=== PATIENT | male | born 1940 | race Caucasian/White ===

== ENCOUNTER → 2018-11-27 10:45 | Day surgery (SDC) | payer MEDICARE, OTHER ==
[~2018-11-27 10:45] MED LIST: Acetaminophen TAB* 325 MG PO PRN; Buffered Lidocaine 1% SYRIN* 1 ML/SYRINGE INTRADERM ONE; Bupivacaine 0.25% SDV PF* 10 ML VIAL INJ ONE; DiMENhydriNATE IV* 50 MG/ML VIAL IV PUSH PRN; Famotidine IV* 10 MG/ML 2 ML (20 mg) ONE; Lactated Ringers 1000 ML Bag* 1,000 ML IV SCH; Levalbuterol 0.63MG/3ML NEB* UNIT OF USE INH PRN; Midazolam* 1 MG/ML 2 ML VIAL (2 MG) ONE; Naloxone* 0.4 MG/ML 1 ML VIAL IV PRN; Ondansetron INJ* 2 MG/ML VIAL IV PRN; ceFAZolin 2 GM in NS PREMIX(*) 2 GM/100 ML BAG IVPB ONE; diPHENhydraMINE IV* 50 MG/ML 1 ml VIAL (BENADRYL) IV PRN; fentaNYL* 50 MCG/ML 2 ML VIAL (100 MCG VIAL) IV PRN; fentaNYL* 50 MCG/ML 2 ML VIAL (100 MCG VIAL) ONE; oxyCODONE/Acetamin 5/325 MG* TAB PO PRN
[2018-11-27] MEDS: Buffered Lidocaine 1% SYRIN* 1 ML/SYRINGE INTRADERM ONE ×2 (12:05→12:34)
[2018-11-27 17:21] VITALS: BP 159/76
--- NOTE | 2018-11-27 22:01 | OP ---
DATE OF OPERATION: 11/27/18 - [facility] DATE OF : 40 SURGEON: Anastacio Schwartz MD. BUSINESS RULES ANALYST: SUJATA Ramesh. An bookkeeping assistant was needed for the procedure to aid in positioning of the arm and retraction. ANESTHESIOLOGIST: Dr. Berumen. ANESTHESIA: General. PRE-OP DIAGNOSES: 1. Right carpal tunnel syndrome. 2. Right cubital tunnel syndrome. 3. Right middle trigger finger. 4. Right thumb very prominent dorsal bone spur near the metacarpal base. POST-OP DIAGNOSES: 1. Right carpal tunnel syndrome. 2. Right cubital tunnel syndrome. 3. Right middle trigger finger. 4. Right thumb very prominent dorsal bone spur near the metacarpal base. OPERATIVE PROCEDURE: 1. Right in situ cubital tunnel release. 2. Right carpal tunnel release. 3. Right middle trigger finger release. 4. Removal of bone spur, right thumb metacarpal base. ESTIMATED BLOOD LOSS: 5 mL. INDICATIONS: Eladio had the numbness and tingling and triggering. Additionally , he had a very large bone spur on the dorsum of the thumb metacarpal base. We had talked about treatment options. He wanted me to take care of everything at the same time. He understands the risks and benefits of surgery including the risks of persistent numbness and tingling and the risk of irritation and numbness about the elbow. He wants to proceed. COMPLICATIONS: None. FINDINGS: See above and below. DESCRIPTION OF PROCEDURE: Mr. Hendricks was seen in the preoperative holding area. The current site, side, and procedure were identified. We came back to the operating room. The arm was prepped and draped in the usual fashion. A time- out was performed. The arm was exsanguinated with the Esmarch and the tourniquet was inflated to 250 mmHg. I went ahead and made a 1 to 2 cm incision over the dorsum of the thumb metacarpal base. Dissection was carried down and full-thickness subperiosteal flaps were raised off of the bone spur. It was actually a bilobed bone spur, the more prominent part being a little bit more ulnar. Once I dissected off the soft tissue free from about the bone spur, I took the rongeur and I excised it in its entirety. Once I had a nice smooth bony base, I went ahead and placed bone wax in the area where I had excised the bone spur. The wound was irrigated out and the skin was closed with 4-0 nylon suture. I then made a 1-cm longitudinal incision with the middle finger A1 eloise. Dissection was carried down through the subcutaneous tissue. Full-thickness flaps were raised off the tendon sheath. Ragnell retractors were placed. The tendon sheath was released longitudinally releasing in entirety of the A1 eloise. The leading edge of the A2 eloise and then the fibrous bands traversing the tendons proximally. After that I took the finger to a full range of motion , there was no more triggering, everything was looking good, so we irrigated out the wound and the skin was closed with 4-0 nylon suture. I then made a 2 to 3 cm incision in the proximal palm. Dissection was carried down through the subcutaneous tissue and palmar fascia. The transverse carpal ligament was released just off the radial aspect of the hook of the hamate. The release was completed distally and then proximally, I released the subcutaneous tissue and the palmar fascia. The remainder of the transverse carpal ligament was released together with the distal antebrachial fascia to a level of several centimeters proximal to the wrist flexion crease. The wound was irrigated out. The skin was closed with 4-0 nylon suture. Lastly, I abducted and externally rotated the arm and then I made a curvilinear incision over the posteromedial elbow in line with ulnar nerve. Dissection was carried down. A very prominent medial antebrachial cutaneous nerve was dissected free and preserved throughout the case. I exposed the nerve just proximal to the Blair ligament and appendiceal retractor was placed. The release was taken up past the arcade of Lowry and then came distally and released the Blair ligament. I then released the superficial FCU fascia and then released the very prominent subfascial layer. Care was taken to protect the nerve throughout. Once I completed the nerve decompression in its entirety , flexion and extended the elbow, there was no subluxation, the nerve was very stable, so we irrigated out the wound. I obtained hemostasis with a Bovie. Subcutaneous tissue was reapproximated with 3-0 Vicryl and the skin was closed with 3-0 Monocryl and Steri-Strips. A 0.25% plain Marcaine was infiltrated all around the operative areas. The wounds were dressed with Xeroform, 4x4's, sterile Webril and an ABD at the elbow and then Julián bandage. Tourniquet was deflated and the hand pinked up immediately. He was taken to the recovery room in stable condition. [id number] #: [id number] MTDD
== END | disposition home or self-care (01) ==
LOC: OR 10:45
PROVIDERS: ATTEND Orthopaedic Surgery Hand Surgery
DX: M18.11 Unilateral primary osteoarthritis of first carpometacarpal joint, right hand (principal); G56.01 Carpal tunnel syndrome, right upper limb; G56.21 Lesion of ulnar nerve, right upper limb; M65.331 Trigger finger, right middle finger; M77.8 Other enthesopathies, not elsewhere classified; M25.741 Osteophyte, right hand; I10 Essential (primary) hypertension; I48.91 Unspecified atrial fibrillation; Z79.01 Long term (current) use of anticoagulants; J44.9 Chronic obstructive pulmonary disease, unspecified; E78.00 Pure hypercholesterolemia, unspecified; K21.9 Gastro-esophageal reflux disease without esophagitis; F41.8 Other specified anxiety disorders; F17.290 Nicotine dependence, other tobacco product, uncomplicated
CPT/HCPCS: J0690; J2250; J3010; J3490

== ENCOUNTER 2020-06-11 11:39 | Inpatient (IN) ==
[2020-06-11] MEDS ORDERED: hydrALAZINE 20 mg/ml 1 ML Vial IV IV SLOW PU ONE ×2 (13:10→13:57)
[2020-06-11] MEDS ORDERED: NS 0.9% 1000 ml BAG 1,000 ML IV ONE (13:10)
[2020-06-11 13:56] LABS: ABS Eosinophils 0.1 10^3/ul (0-0.6); ABS Lymphocytes 2.5 10^3/ul (1.0-4.8); ABS Monocytes 0.5 10^3/ul (0-0.8); Eosinophil % 1.1 %; Hematocrit 44 % (42-52); Hemoglobin 14.9 g/dL (14.0-18.0); Mean Corpuscular HGB Conc 34 g/dL (31-36); Mean Corpuscular Hemoglobin 31 pg (27-31); Mean Corpuscular Volume 91 fL (80-94); Mean Platelet Volume 8.7 fL (7.4-10.4); Nucleated Red Blood Cells % 0.1; Platelet Count 178 10^3/uL (150-450); Red Cell Distribution Width 14 % (10-15); White Blood Count 7.2 10^3/uL (3.5-10.8)
[2020-06-11 14:29] LABS: Albumin/Globulin Ratio 1.5 (1-3); BUN/Creatinine Ratio 23.2 (8-20); Calcium 9.2 mg/dL (8.6-10.3); EGFR African American 92.5 (>60); EGFR Non-African American 76.5 (>60); Globulin 2.6 g/dL (2-4); Potassium 4.1 mmol/L (3.5-5.0); Total Bilirubin 0.4 mg/dL (0.2-1.0); Total Protein 6.6 g/dL (6.4-8.9)
[2020-06-11 14:31] LABS: Troponin I 0.01 ng/mL (<0.03)
[2020-06-11 15:11] LABS: TSH Ultra Thyroid Stim Horm 8.53 mcIU/mL (0.34-5.60)
[2020-06-11] MEDS ORDERED: niCARdipine 0.1MG/ML IVPREMIX 20 MG/200 ML BAG IV SCH (16:00)
[2020-06-11] MEDS ORDERED: Morphine 4 MG/ML VIAL (1 ml) IV ONE (16:04)
[2020-06-11] MEDS ORDERED: Ondansetron 4 mg VIAL 2 MG/ML 2 ml VIAL IV ONE (16:05)
[2020-06-11] MEDS ORDERED: Iohexol 350 (CONTRAST) 500 ML MDV IV ONE (18:38)
[2020-06-11 19:04] LABS: Hematocrit 50 % (42-52); Hemoglobin 17.1 g/dL (14.0-18.0); Mean Corpuscular HGB Conc 34 g/dL (31-36); Mean Corpuscular Hemoglobin 31 pg (27-31); Mean Corpuscular Volume 91 fL (80-94); Mean Platelet Volume 8.1 fL (7.4-10.4); Platelet Count 197 10^3/uL (150-450); Red Blood Count 5.53 10^6 /uL (4.18-5.48); Red Cell Distribution Width 14 % (10-15); White Blood Count 11.1 10^3/uL (3.5-10.8)
[2020-06-11] MEDS: niCARdipine 0.1MG/ML IVPREMIX 20 MG/200 ML BAG IV SCH ×2 (19:15→21:45)
[2020-06-11 19:18] LABS: Calcium 9.7 mg/dL (8.6-10.3); EGFR African American 98.5 (>60); EGFR Non-African American 81.4 (>60); Magnesium 1.8 mg/dL (1.9-2.7); Potassium 3.7 mmol/L (3.5-5.0)
[2020-06-12] MEDS: niCARdipine 0.1MG/ML IVPREMIX 20 MG/200 ML BAG IV SCH ×2 (03:21→08:50)
[2020-06-12 04:33] LABS: Hematocrit 51 % (42-52); Hemoglobin 17.1 g/dL (14.0-18.0); Mean Corpuscular HGB Conc 34 g/dL (31-36); Mean Corpuscular Hemoglobin 31 pg (27-31); Mean Corpuscular Volume 91 fL (80-94); Mean Platelet Volume 7.8 fL (7.4-10.4); Platelet Count 197 10^3/uL (150-450); Red Blood Count 5.55 10^6 /uL (4.18-5.48); Red Cell Distribution Width 15 % (10-15); White Blood Count 9.8 10^3/uL (3.5-10.8)
[2020-06-12 04:49] LABS: BUN/Creatinine Ratio 17.9 (8-20); Calcium 9.1 mg/dL (8.6-10.3); EGFR African American 116.2 (>60); Potassium 3.6 mmol/L (3.5-5.0)
[2020-06-12] MEDS ORDERED: oxyCODONE/Acetamin 5/325 mg TAB PO PRN (05:31)
[2020-06-12] MEDS ORDERED: Albuterol 2.5mg/3 ml (0.083%) NEB.SOLN INH PRN (05:31)
[2020-06-12] MEDS ORDERED: Potassium Chlor 20 meq TAB.ER PO ONE (05:32)
[2020-06-12 06:16] LABS: Troponin I 0.01 ng/mL (<0.03)
[2020-06-12] MEDS: CMCS:Venlafaxine 25 mg TAB (NF) PO SCH ×3 (08:26→20:01)
[2020-06-12] MEDS: Aspirin EC 81 mg TAB.EC (enteric coated) PO SCH (08:27)
[2020-06-12] MEDS: Multivitamins/Minerals TAB PO SCH (08:27)
[2020-06-12] MEDS: Morphine ER 30 mg TAB ** extended release PO SCH ×2 (08:27→22:05)
[2020-06-12] MEDS ORDERED: Methylnaltrexone SQ (NF) 12 MG/0.6 ML VIAL SUBCUT ONE (09:00)
[2020-06-12] MEDS ORDERED: Perflutren Lipid Microsphere 3 ML VIAL ONE (09:25)
[2020-06-13] MEDS ORDERED: Polyethylene Glycol 3350 17 GM PACKET PO PRN (06:59)
[2020-06-13] MEDS: Morphine ER 30 mg TAB ** extended release PO SCH (08:04)
[2020-06-13] MEDS: Aspirin EC 81 mg TAB.EC (enteric coated) PO SCH (08:04)
[2020-06-13] MEDS: Multivitamins/Minerals TAB PO SCH (08:04)
[2020-06-13] MEDS: CMCS:Venlafaxine 25 mg TAB (NF) PO SCH ×2 (08:05→12:55)
[2020-06-13 11:53] VITALS: BP 139/70
== END 2020-06-13 15:15 | disposition home or self-care (01) | DRG 305 ==
LOC: ED 11:39 → ICU 17:35 → MEDTELE 06-12 14:13
PROVIDERS: ADMIT Internal Medicine; ATTEND Internal Medicine

== ENCOUNTER 2020-06-19 14:11 | Observation (INO) ==
[2020-06-19 15:10] LABS: ABS Basophils 0.1 10^3/ul (0-0.2); ABS Lymphocytes 3.1 10^3/ul (1.0-4.8); ABS Monocytes 1.4 10^3/ul (0-0.8); ABS Neutrophils 13.7 10^3/ul (1.5-7.7); Eosinophil % 0.2 %; Hematocrit 53 % (42-52); Hemoglobin 17.6 g/dL (14.0-18.0); Mean Corpuscular HGB Conc 34 g/dL (31-36); Mean Corpuscular Hemoglobin 31 pg (27-31); Mean Corpuscular Volume 92 fL (80-94); Mean Platelet Volume 8.2 fL (7.4-10.4); Platelet Count 322 10^3/uL (150-450); Red Cell Distribution Width 14 % (10-15); White Blood Count 18.3 10^3/uL (3.5-10.8)
[2020-06-19 15:35] LABS: Troponin I 0.04 ng/mL (<0.03)
[2020-06-19 15:51] LABS: TSH Ultra Thyroid Stim Horm 4.16 mcIU/mL (0.34-5.60)
[2020-06-19 15:53] LABS: Free T4 0.81 ng/dL (0.61-1.12)
[2020-06-19 16:04] LABS: Albumin 4.6 g/dL (3.2-5.2); Anion Gap 20 mmol/L (2-11); CO2 Carbon Dioxide 18 mmol/L (22-32); Calcium 10.2 mg/dL (8.6-10.3); Chloride 101 mmol/L (101-111); Potassium 3.8 mmol/L (3.5-5.0); Sodium 139 mmol/L (135-145)
[2020-06-19 16:10] LABS: ALT 22 U/L (7-52); AST 25 U/L (13-39); Albumin/Globulin Ratio 1.6 (1-3); Alkaline Phosphatase 100 U/L (34-104); BUN/Creatinine Ratio 16.7 (8-20); Blood Urea Nitrogen 29 mg/dL (6-24); Globulin 2.9 g/dL (2-4); Glucose 141 mg/dL (70-100); Total Protein 7.5 g/dL (6.4-8.9)
[2020-06-19] MEDS ORDERED: NS 0.9% 1000 ml BAG 1,000 ML IV ONE ×2 (16:28→18:42)
[2020-06-19] MEDS ORDERED: oxyCODONE/Acetamin 5/325 mg TAB PO PRN (17:33)
[2020-06-19] MEDS ORDERED: Albuterol HFA INHALER 8 gm MDI INH PRN (17:39)
[2020-06-19 17:52] LABS: C Reactive Protein 1.79 mg/L (<8.01)
[2020-06-19 18:20] LABS: Troponin I 0.03 ng/mL (<0.03)
[2020-06-19] MEDS: Morphine ER 30 mg TAB ** extended release PO SCH (19:09)
[2020-06-19 19:30] LABS: Urine Appearance Cloudy; Urine Bilirubin Negative (Negative); Urine Blood 3+ (Negative); Urine Color Yellow; Urine Glucose Negative (Negative); Urine Ketones Negative (Negative); Urine Nitrite Negative (Negative); Urine Protein 3+(>=500 mg/dL) (Negative); Urine Specific Gravity 1.019 (1.010-1.030); Urine Urobilinogen Negative (Negative)
[2020-06-19 20:24] LABS: Urine Bacteria Absent (Absent); Urine Red Blood Cell 3+(>10/hpf) (Absent); Urine White Blood Cell Trace(0-5/hpf) (Absent)
[2020-06-19] MEDS ORDERED: IPRATROPIUM RESP MDI INH SCH (21:00)
[2020-06-19] MEDS ORDERED: ALBUTEROL INH SCH (21:00)
[2020-06-19] MEDS ORDERED: MELATONIN PYRIDOXINE HCL PO SCH (21:00)
[2020-06-19 21:43] LABS: Troponin I 0.03 ng/mL (<0.03)
[2020-06-19] MEDS: cefTRIAXone 1 gm/50 mL NS BAG 1 GM/50 ML BAG IVPB SCH (23:08)
[2020-06-20] MEDS: VENLAFAXINE 25 MG PO SCH ×4 (01:01→21:20)
[2020-06-20 02:28] LABS: ABS Basophils 0.1 10^3/ul (0-0.2); ABS Lymphocytes 4.1 10^3/ul (1.0-4.8); ABS Monocytes 1.2 10^3/ul (0-0.8); ABS Neutrophils 8.4 10^3/ul (1.5-7.7); Eosinophil % 0.1 %; Hematocrit 46 % (42-52); Hemoglobin 15.2 g/dL (14.0-18.0); Lymphocyte % 29.5 %; Mean Corpuscular HGB Conc 33 g/dL (31-36); Mean Corpuscular Hemoglobin 31 pg (27-31); Mean Corpuscular Volume 92 fL (80-94); Mean Platelet Volume 8.2 fL (7.4-10.4); Nucleated Red Blood Cells % 0.1; Platelet Count 253 10^3/uL (150-450); Red Blood Count 4.99 10^6 /uL (4.18-5.48); Red Cell Distribution Width 14 % (10-15); White Blood Count 13.8 10^3/uL (3.5-10.8)
[2020-06-20 02:42] LABS: BUN/Creatinine Ratio 23.2 (8-20); EGFR African American 60.1 (>60); EGFR Non-African American 49.7 (>60); Potassium 3.5 mmol/L (3.5-5.0)
[2020-06-20 02:51] LABS: Troponin I 0.03 ng/mL (<0.03)
[2020-06-20] MEDS ORDERED: Albuterol HFA INHALER 8 gm MDI INH PRN (07:00)
[2020-06-20] MEDS: Albuterol/Ipratropium RESP(NF) MDI (Combivent Respimat) INH SCH ×3 (07:01→13:39)
[2020-06-20] MEDS: Morphine ER 30 mg TAB ** extended release PO SCH ×2 (07:19→18:00)
[2020-06-20] MEDS: Aspirin EC 81 mg TAB.EC (enteric coated) PO SCH (09:53)
[2020-06-20] MEDS: Multivitamins/Minerals TAB PO SCH (09:53)
[2020-06-20] MEDS ORDERED: Senna TAB 8.6 mg TAB PO PRN (13:15)
[2020-06-20] MEDS ORDERED: Albuterol/Ipratropium NEB.SOL (2.5/0.5 MG) 3 ML NEB.SOLN INH PRN (14:45)
[2020-06-20] MEDS: Magnesium Hydroxide LIQ 30 ML UDC PO SCH ×2 (17:58→21:19)
[2020-06-20 19:36] LABS: Influenza A Molecular Negative (Negative); Influenza B Molecular Negative (Negative)
[2020-06-20] MEDS ORDERED: Magnesium Hydroxide LIQ 30 ML UDC PO SCH (21:00)
[2020-06-20] MEDS: cefTRIAXone 1 gm/50 mL NS BAG 1 GM/50 ML BAG IVPB SCH (21:18)
[2020-06-21 05:12] LABS: Hematocrit 45 % (42-52); Mean Corpuscular HGB Conc 34 g/dL (31-36); Mean Corpuscular Hemoglobin 31 pg (27-31); Mean Corpuscular Volume 91 fL (80-94); Platelet Count 202 10^3/uL (150-450); Red Blood Count 4.89 10^6 /uL (4.18-5.48); Red Cell Distribution Width 15 % (10-15); White Blood Count 7.7 10^3/uL (3.5-10.8)
[2020-06-21 05:18] LABS: Anion Gap 6 mmol/L (2-11); BUN/Creatinine Ratio 26.7 (8-20); Blood Urea Nitrogen 28 mg/dL (6-24); CO2 Carbon Dioxide 27 mmol/L (22-32); Chloride 103 mmol/L (101-111); EGFR African American 82.4 (>60); EGFR Non-African American 68.1 (>60); Glucose 112 mg/dL (70-100); Potassium 3.8 mmol/L (3.5-5.0); Sodium 136 mmol/L (135-145)
[2020-06-21 06:23] LABS: Vitamin B12 711 pg/mL (180-914)
[2020-06-21] MEDS: Morphine ER 30 mg TAB ** extended release PO SCH (06:36)
[2020-06-21] MEDS: VENLAFAXINE 25 MG PO SCH (09:17)
[2020-06-21] MEDS: Multivitamins/Minerals TAB PO SCH (09:18)
[2020-06-21] MEDS: Aspirin EC 81 mg TAB.EC (enteric coated) PO SCH (09:18)
[2020-06-21] MEDS: Magnesium Hydroxide LIQ 30 ML UDC PO SCH (09:20)
[2020-06-21 10:33] LABS: C Reactive Protein < 1.00 mg/L (<8.01)
[2020-06-21 13:05] VITALS: BP 151/72
== END 2020-06-21 13:45 | disposition home or self-care (01) ==
LOC: MED 14:11 → ED 14:11 → MED 20:30
PROVIDERS: ADMIT Internal Medicine; ATTEND Internal Medicine

== ENCOUNTER 2020-08-03 16:29 | Inpatient (IN) ==
[2020-08-03] MEDS ORDERED: NS 0.9% 1000 ml BAG 1,000 ML IV ONE ×2 (16:42→16:56)
[2020-08-03] MEDS ORDERED: Magnesium Sulfate IV 1GM/100ML 1 GM/100 ML BAG IV ONE (16:42)
[2020-08-03] MEDS ORDERED: Diltiazem IV push/loading dose 5 MG/ML 5 ML vial (25 mg) IV SLOW PU ONE (16:43)
[2020-08-03 16:51] LABS: ABS Basophils 0.1 10^3/ul (0-0.2); ABS Monocytes 1.4 10^3/ul (0-0.8); ABS Neutrophils 16.5 10^3/ul (1.5-7.7); Eosinophil % 0.1 %; Hematocrit 59 % (42-52); Hemoglobin 19.5 g/dL (14.0-18.0); Lymphocyte % 14.3 %; Mean Corpuscular HGB Conc 33 g/dL (31-36); Mean Corpuscular Hemoglobin 31 pg (27-31); Mean Corpuscular Volume 92 fL (80-94); Mean Platelet Volume 8.9 fL (7.4-10.4); Platelet Count 349 10^3/uL (150-450); Red Blood Count 6.38 10^6 /uL (4.18-5.48); Red Cell Distribution Width 14 % (10-15); White Blood Count 21.1 10^3/uL (3.5-10.8)
[2020-08-03] MEDS ORDERED: Piperacillin/Tazobac ADVAN 3.375 GM in NS 0.9% 100 ml BAG 100 ML IVPB ONE (16:54)
[2020-08-03] MEDS ORDERED: Vancomycin 1,250 MG in NS 0.9% 250 ml 250 ML IVPB SCH (17:00)
[2020-08-03 17:08] LABS: ALT 45 U/L (7-52); AST 46 U/L (13-39); Albumin 4.5 g/dL (3.2-5.2); Albumin/Globulin Ratio 1.4 (1-3); Alkaline Phosphatase 97 U/L (34-104); Anion Gap 22 mmol/L (2-11); BUN/Creatinine Ratio 15.4 (8-20); Blood Urea Nitrogen 53 mg/dL (6-24); CO2 Carbon Dioxide 21 mmol/L (22-32); Calcium 10.3 mg/dL (8.6-10.3); Chloride 96 mmol/L (101-111); EGFR African American 20.9 (>60); EGFR Non-African American 17.3 (>60); Globulin 3.2 g/dL (2-4); Glucose 175 mg/dL (70-100); Magnesium 2.4 mg/dL (1.9-2.7); Potassium 3.4 mmol/L (3.5-5.0); Sodium 139 mmol/L (135-145); Total Protein 7.7 g/dL (6.4-8.9)
[2020-08-03 17:12] LABS: Troponin I 0.28 ng/mL (<0.03)
[2020-08-03 17:49] LABS: TSH Ultra Thyroid Stim Horm 4.58 mcIU/mL (0.34-5.60)
[2020-08-03 17:51] LABS: Free T4 1.04 ng/dL (0.61-1.12)
[2020-08-03] MEDS ORDERED: Naloxone 0.4 mg VIAL 0.4 mg/ml 1 ml VIAL IV PUSH ONE (18:25)
[2020-08-03] MEDS ORDERED: Piperacillin/Tazobac ADVAN 3.375 GM in NS 0.9% 100 ml BAG 100 ML IV ONE (19:20)
[2020-08-03] MEDS ORDERED: Vancomycin per Pharmacy 1 EA NOTE FOLLOW UP SCH (20:00)
[2020-08-03 20:31] LABS: INR 1.85 (0.82-1.09)
[2020-08-03 20:47] LABS: Troponin I 0.25 ng/mL (<0.03)
[2020-08-03] MEDS: ZOSYN 3.375 GM Q12H per EXTENDED INFUSION IV SCH (23:37)
[2020-08-03 23:38] LABS: Urine Appearance Cloudy; Urine Bilirubin Negative (Negative); Urine Blood Negative (Negative); Urine Color Amber; Urine Glucose Negative (Negative); Urine Ketones Trace (Negative); Urine Nitrite Negative (Negative); Urine Protein 2+(100 mg/dL) (Negative); Urine Urobilinogen Negative (Negative)
[2020-08-03 23:45] LABS: Urine Bacteria Absent (Absent); Urine Red Blood Cell Absent (Absent); Urine White Blood Cell Trace(0-5/hpf) (Absent)
[2020-08-03] MEDS ORDERED: Zosyn per Pharmacy NOTE FOLLOW UP SCH (23:45)
[2020-08-04] MEDS ORDERED: Lactated Ringers 1000 ml BAG 500 ML IV SCH ×2 (01:00→07:00)
[2020-08-04 02:26] LABS: Creatine Kinase 89 U/L (10-223)
[2020-08-04] MEDS ORDERED: Lactated Ringers 500 ml BAG 500 ML IV ONE ×3 (03:44→17:02)
[2020-08-04 05:04] LABS: Hematocrit 44 % (42-52); Hemoglobin 14.9 g/dL (14.0-18.0); Mean Corpuscular HGB Conc 34 g/dL (31-36); Mean Corpuscular Hemoglobin 31 pg (27-31); Mean Corpuscular Volume 92 fL (80-94); Mean Platelet Volume 8.5 fL (7.4-10.4); Platelet Count 245 10^3/uL (150-450); Red Blood Count 4.79 10^6 /uL (4.18-5.48); Red Cell Distribution Width 14 % (10-15); White Blood Count 14.9 10^3/uL (3.5-10.8)
[2020-08-04 05:11] LABS: INR 1.67 (0.82-1.09)
[2020-08-04 05:21] LABS: ALT 32 U/L (7-52); AST 28 U/L (13-39); Albumin 3.3 g/dL (3.2-5.2); Albumin/Globulin Ratio 1.6 (1-3); Alkaline Phosphatase 63 U/L (34-104); Anion Gap 11 mmol/L (2-11); BUN/Creatinine Ratio 20.8 (8-20); Blood Urea Nitrogen 66 mg/dL (6-24); CO2 Carbon Dioxide 24 mmol/L (22-32); Calcium 8.1 mg/dL (8.6-10.3); Chloride 104 mmol/L (101-111); Globulin 2.1 g/dL (2-4); Glucose 129 mg/dL (70-100); Magnesium 2.3 mg/dL (1.9-2.7); Phosphorus 7.7 mg/dL (2.5-5.0); Potassium 3.8 mmol/L (3.5-5.0); Sodium 139 mmol/L (135-145); Total Protein 5.4 g/dL (6.4-8.9)
[2020-08-04] MEDS ORDERED: Vancomycin Random Level NOTE FOLLOW UP ONE (06:00)
[2020-08-04 06:16] LABS: Troponin I 0.19 ng/mL (<0.03)
[2020-08-04] MEDS: Lactated Ringers 1000 ml BAG 1,000 ML IV SCH ×2 (06:50→10:49)
[2020-08-04] MEDS ORDERED: Perflutren Lipid Microsphere 3 ML VIAL ONE (10:30)
[2020-08-04] MEDS: ZOSYN 3.375 GM Q12H per EXTENDED INFUSION IV SCH ×2 (12:47→22:59)
[2020-08-04] MEDS ORDERED: Senna TAB 8.6 mg TAB PO PRN (15:10)
[2020-08-04 16:55] LABS: C Reactive Protein 4.46 mg/L (<8.01)
[2020-08-04] MEDS: CMCS: Venlafaxine 25 mg TAB (NF) PO SCH (20:45)
[2020-08-05] MEDS: Lactated Ringers 1000 ml BAG 1,000 ML IV SCH ×2 (01:50→12:41)
[2020-08-05 07:06] LABS: ABS Eosinophils 0.1 10^3/ul (0-0.6); ABS Monocytes 0.8 10^3/ul (0-0.8); Eosinophil % 0.7 %; Hematocrit 42 % (42-52); Lymphocyte % 22.7 %; Mean Corpuscular HGB Conc 33 g/dL (31-36); Mean Corpuscular Hemoglobin 31 pg (27-31); Mean Corpuscular Volume 94 fL (80-94); Mean Platelet Volume 8.4 fL (7.4-10.4); Platelet Count 162 10^3/uL (150-450); Red Cell Distribution Width 14 % (10-15); White Blood Count 8.8 10^3/uL (3.5-10.8)
[2020-08-05 07:34] LABS: BUN/Creatinine Ratio 31.6 (8-20); Calcium 8.2 mg/dL (8.6-10.3); EGFR African American 46.8 (>60); EGFR Non-African American 38.7 (>60); Potassium 3.5 mmol/L (3.5-5.0)
[2020-08-05] MEDS: CMCS: Venlafaxine 25 mg TAB (NF) PO SCH ×3 (09:27→22:21)
[2020-08-05] MEDS: Aspirin EC 81 mg TAB.EC (enteric coated) PO SCH (09:29)
[2020-08-05] MEDS: ZOSYN 3.375 GM Q12H per EXTENDED INFUSION IV SCH ×2 (11:33→22:34)
[2020-08-05] MEDS ORDERED: LORazepam 2 mg VIAL 1 ml IV PUSH ONE (14:27)
[2020-08-05] MEDS ORDERED: Lorazepam PYXIS KEY PRN ×2 (14:27→17:36)
[2020-08-05] MEDS ORDERED: LORazepam 2 mg VIAL 1 ml ONE (15:20)
[2020-08-05] MEDS ORDERED: Haloperidol 5 mg/ml SDV IV/IM 5 MG/ML AMP IV SLOW PU ONE (16:09)
[2020-08-05] MEDS ORDERED: Haloperidol 5 mg/ml SDV IV/IM 5 MG/ML AMP ONE (16:10)
[2020-08-05] MEDS ORDERED: LORazepam 2 mg VIAL 1 ml IV PUSH PRN (17:36)
[2020-08-05] MEDS: MELATONIN PYRIDOXINE HCL PO SCH (22:40)
[2020-08-06] MEDS ORDERED: LORazepam 2 mg VIAL 1 ml IM ONE (00:34)
[2020-08-06] MEDS ORDERED: Lorazepam PYXIS KEY PRN ×2 (00:34→00:50)
[2020-08-06] MEDS ORDERED: LORazepam 2 mg VIAL 1 ml IM PRN (00:50)
[2020-08-06] MEDS: Aspirin EC 81 mg TAB.EC (enteric coated) PO SCH (08:50)
[2020-08-06 09:41] LABS: ABS Lymphocytes 1.2 10^3/ul (1.0-4.8); ABS Monocytes 0.7 10^3/ul (0-0.8); ABS Neutrophils 8.8 10^3/ul (1.5-7.7); Eosinophil % 0.1 %; Hematocrit 48 % (42-52); Hemoglobin 16.7 g/dL (14.0-18.0); Lymphocyte % 11.5 %; Mean Corpuscular HGB Conc 35 g/dL (31-36); Mean Corpuscular Hemoglobin 31 pg (27-31); Mean Corpuscular Volume 90 fL (80-94); Mean Platelet Volume 8.5 fL (7.4-10.4); Platelet Count 227 10^3/uL (150-450); Red Blood Count 5.34 10^6 /uL (4.18-5.48); Red Cell Distribution Width 14 % (10-15); White Blood Count 10.8 10^3/uL (3.5-10.8)
[2020-08-06 09:57] LABS: BUN/Creatinine Ratio 23.7 (8-20); Calcium 10.1 mg/dL (8.6-10.3); EGFR African American 90.1 (>60); EGFR Non-African American 74.5 (>60)
[2020-08-06 10:34] LABS: Magnesium 1.8 mg/dL (1.9-2.7)
[2020-08-06] MEDS: CMCS: Venlafaxine 25 mg TAB (NF) PO SCH ×3 (10:52→21:02)
[2020-08-06] MEDS ORDERED: Magnesium Sulfate 2 gm BAG 2 GM/50 ML BAG IVPB ONE (13:42)
[2020-08-06] MEDS ORDERED: Metoprolol Tartrate 5 mg VIAL 5 ml VIAL (1 mg/ml) IV ONE ×3 (14:00→22:16)
[2020-08-06] MEDS ORDERED: Metoprolol Tartrate 5 mg VIAL 5 ml VIAL (1 mg/ml) ONE (14:05)
[2020-08-06] MEDS ORDERED: Potassium Chlor 20 meq TAB.ER PO ONE (18:25)
[2020-08-06] MEDS: MELATONIN PYRIDOXINE HCL PO SCH (21:03)
[2020-08-07] MEDS ORDERED: Diltiazem IV push/loading dose 5 MG/ML 5 ML vial (25 mg) IV SLOW PU ONE ×2 (01:43→06:50)
[2020-08-07 02:45] LABS: CO2 Carbon Dioxide 20 mmol/L (22-32); Calcium 10.2 mg/dL (8.6-10.3); Chloride 102 mmol/L (101-111); Sodium 137 mmol/L (135-145)
[2020-08-07 02:51] LABS: BUN/Creatinine Ratio 29.2 (8-20); Blood Urea Nitrogen 31 mg/dL (6-24); EGFR African American 81.3 (>60); EGFR Non-African American 67.2 (>60); Glucose 156 mg/dL (70-100)
[2020-08-07 02:54] LABS: Anion Gap 15 mmol/L (2-11)
[2020-08-07 03:44] LABS: Magnesium 2.5 mg/dL (1.9-2.7); Potassium Redraw 3.5 mmol/L (3.5-5.0)
[2020-08-07 06:02] LABS: Magnesium 2.5 mg/dL (1.9-2.7); Potassium 3.2 mmol/L (3.5-5.0)
[2020-08-07 06:08] LABS: EGFR African American 68.5 (>60); EGFR Non-African American 56.6 (>60)
[2020-08-07] MEDS ORDERED: Diltiazem IV push/loading dose 5 MG/ML 5 ML vial (25 mg) ONE (06:53)
[2020-08-07] MEDS ORDERED: Potassium Chlor 20 meq TAB.ER PO ONE (06:55)
[2020-08-07] MEDS ORDERED: Diltiazem (ADVAN VIAL) 100 MG/100 ML ADDV.BAG IV SCH ×4 (07:00→17:33)
[2020-08-07] MEDS: Aspirin EC 81 mg TAB.EC (enteric coated) PO SCH (08:00)
[2020-08-07] MEDS: CMCS: Venlafaxine 25 mg TAB (NF) PO SCH ×3 (08:08→19:59)
[2020-08-07 09:15] LABS: ABS Basophils 0.1 10^3/ul (0-0.2); ABS Lymphocytes 3.1 10^3/ul (1.0-4.8); ABS Monocytes 1.2 10^3/ul (0-0.8); ABS Neutrophils 15.6 10^3/ul (1.5-7.7); Hematocrit 56 % (42-52); Hemoglobin 19.4 g/dL (14.0-18.0); Lymphocyte % 15.4 %; Mean Corpuscular HGB Conc 35 g/dL (31-36); Mean Corpuscular Hemoglobin 32 pg (27-31); Mean Corpuscular Volume 90 fL (80-94); Mean Platelet Volume 8.5 fL (7.4-10.4); Nucleated Red Blood Cells % 0.1; Platelet Count 339 10^3/uL (150-450); Red Blood Count 6.17 10^6 /uL (4.18-5.48); Red Cell Distribution Width 14 % (10-15)
[2020-08-07] MEDS ORDERED: Zosyn per Pharmacy NOTE FOLLOW UP SCH (10:00)
[2020-08-07] MEDS ORDERED: Piperacillin/Tazobac ADVAN 3.375 GM in NS 0.9% 100 ml BAG 100 ML IV ONE (10:00)
[2020-08-07] MEDS ORDERED: LACTATED RINGERS IV SCH (10:00)
[2020-08-07] MEDS ORDERED: NS 0.9% 1000 ml BAG 1,000 ML IV ONE (10:44)
[2020-08-07] MEDS ORDERED: Iodixanol (CONTRAST) 320 MG/ML 100 ML SDV IV ONE (11:13)
[2020-08-07] MEDS ORDERED: Metoprolol Tartrate 5 mg VIAL 5 ml VIAL (1 mg/ml) IV ONE (11:18)
[2020-08-07] MEDS ORDERED: NS 0.9% 1000 ml BAG 1,000 ML IV SCH ×2 (14:30→16:27)
[2020-08-07 15:38] LABS: Urine Appearance Clear; Urine Bilirubin Negative (Negative); Urine Blood 1+ (Negative); Urine Color Yellow; Urine Glucose Negative (Negative); Urine Ketones Negative (Negative); Urine Nitrite Negative (Negative); Urine Protein 2+(100 mg/dL) (Negative); Urine Specific Gravity 1.042 (1.002-1.030); Urine Urobilinogen Negative (Negative)
[2020-08-07 15:51] LABS: Urine Bacteria Absent (Absent); Urine Red Blood Cell 2+(6-10/hpf) (Absent); Urine White Blood Cell Trace(0-5/hpf) (Absent)
[2020-08-07] MEDS: ZOSYN 3.375 GM Q8H per EXTENDED INFUSION IV SCH ×2 (16:18→23:54)
[2020-08-07] MEDS ORDERED: Metoprolol Tartrate 5 mg VIAL 5 ml VIAL (1 mg/ml) IV PRN (19:15)
[2020-08-07] MEDS: Polyethylene Glycol 3350 17 GM PACKET PO SCH (19:57)
[2020-08-07] MEDS: MELATONIN PYRIDOXINE HCL PO SCH (20:04)
[2020-08-08 06:09] LABS: ABS Lymphocytes 2.7 10^3/ul (1.0-4.8); ABS Monocytes 1.1 10^3/ul (0-0.8); ABS Neutrophils 11.1 10^3/ul (1.5-7.7); Hematocrit 50 % (42-52); Hemoglobin 17.1 g/dL (14.0-18.0); Lymphocyte % 17.9 %; Mean Corpuscular HGB Conc 34 g/dL (31-36); Mean Corpuscular Hemoglobin 31 pg (27-31); Mean Corpuscular Volume 91 fL (80-94); Mean Platelet Volume 8.5 fL (7.4-10.4); Nucleated Red Blood Cells % 0.1; Platelet Count 273 10^3/uL (150-450); Red Blood Count 5.53 10^6 /uL (4.18-5.48); Red Cell Distribution Width 14 % (10-15); White Blood Count 14.9 10^3/uL (3.5-10.8)
[2020-08-08 06:27] LABS: BUN/Creatinine Ratio 21.6 (8-20); Calcium 9.1 mg/dL (8.6-10.3); EGFR African American 77.1 (>60); EGFR Non-African American 63.7 (>60); Potassium 3.2 mmol/L (3.5-5.0)
[2020-08-08] MEDS ORDERED: Mineral Oil ENEMA 118 ML/BOTTLE BOTTLE PR ONE (07:37)
[2020-08-08] MEDS: Aspirin EC 81 mg TAB.EC (enteric coated) PO SCH (08:53)
[2020-08-08] MEDS: Polyethylene Glycol 3350 17 GM PACKET PO SCH ×2 (08:56→20:33)
[2020-08-08] MEDS: Senna TAB 8.6 mg TAB PO SCH ×3 (08:56→20:02)
[2020-08-08] MEDS: ZOSYN 3.375 GM Q8H per EXTENDED INFUSION IV SCH ×2 (09:11→16:56)
[2020-08-08] MEDS: CMCS: Venlafaxine 25 mg TAB (NF) PO SCH ×3 (09:11→20:03)
[2020-08-08] MEDS ORDERED: Metoprolol Tartrate 5 mg VIAL 5 ml VIAL (1 mg/ml) IV SCH (14:00)
[2020-08-08] MEDS: MELATONIN PYRIDOXINE HCL PO SCH (20:33)
[2020-08-08] MEDS ORDERED: Lactulose 30 ml UDC PO SCH (21:00)
[2020-08-08] MEDS ORDERED: Metoprolol Tartrate 5 mg VIAL 5 ml VIAL (1 mg/ml) IV ONE (22:11)
[2020-08-08] MEDS: Metoprolol Tartrate 5 mg VIAL 5 ml VIAL (1 mg/ml) IV PRN (22:13)
[2020-08-09] MEDS: ZOSYN 3.375 GM Q8H per EXTENDED INFUSION IV SCH ×2 (00:06→08:26)
[2020-08-09] MEDS ORDERED: hydrALAZINE 20 mg/ml 1 ML Vial IV IV SLOW PU PRN (04:16)
[2020-08-09] MEDS: Metoprolol Tartrate 5 mg VIAL 5 ml VIAL (1 mg/ml) IV PRN (05:11)
[2020-08-09 06:25] LABS: ABS Basophils 0.1 10^3/ul (0-0.2); ABS Monocytes 1.4 10^3/ul (0-0.8); ABS Neutrophils 11.1 10^3/ul (1.5-7.7); Eosinophil % 0.3 %; Hematocrit 50 % (42-52); Hemoglobin 16.6 g/dL (14.0-18.0); Lymphocyte % 19.3 %; Mean Corpuscular HGB Conc 34 g/dL (31-36); Mean Corpuscular Hemoglobin 30 pg (27-31); Mean Corpuscular Volume 91 fL (80-94); Mean Platelet Volume 8.2 fL (7.4-10.4); Nucleated Red Blood Cells % 0.1; Platelet Count 325 10^3/uL (150-450); Red Blood Count 5.46 10^6 /uL (4.18-5.48); Red Cell Distribution Width 14 % (10-15); White Blood Count 15.7 10^3/uL (3.5-10.8)
[2020-08-09 06:44] LABS: BUN/Creatinine Ratio 19.4 (8-20); Calcium 9.2 mg/dL (8.6-10.3); EGFR African American 79.6 (>60); EGFR Non-African American 65.8 (>60); Magnesium 1.8 mg/dL (1.9-2.7); Potassium 2.9 mmol/L (3.5-5.0)
[2020-08-09] MEDS ORDERED: Magnesium Sulfate IV 1GM/100ML 1 GM/100 ML BAG IV ONE (07:31)
[2020-08-09] MEDS ORDERED: Potassium Chloride LIQUID 20 MEQ/15 ML LIQUID PO ONE ×2 (07:32→13:18)
[2020-08-09] MEDS: Senna TAB 8.6 mg TAB PO SCH ×2 (08:18→21:38)
[2020-08-09] MEDS: Aspirin EC 81 mg TAB.EC (enteric coated) PO SCH (08:20)
[2020-08-09] MEDS: CMCS: Venlafaxine 25 mg TAB (NF) PO SCH ×3 (08:23→21:36)
[2020-08-09] MEDS: Polyethylene Glycol 3350 17 GM PACKET PO SCH (08:36)
[2020-08-09] MEDS ORDERED: Albuterol/Ipratropium NEB.SOL (2.5/0.5 MG) 3 ML NEB.SOLN INH PRN (15:18)
[2020-08-10 05:23] LABS: Hematocrit 51 % (42-52); Hemoglobin 17.5 g/dL (14.0-18.0); Mean Corpuscular HGB Conc 34 g/dL (31-36); Mean Corpuscular Hemoglobin 31 pg (27-31); Mean Corpuscular Volume 91 fL (80-94); Mean Platelet Volume 8.4 fL (7.4-10.4); Platelet Count 330 10^3/uL (150-450); Red Blood Count 5.59 10^6 /uL (4.18-5.48); Red Cell Distribution Width 14 % (10-15); White Blood Count 14.8 10^3/uL (3.5-10.8)
[2020-08-10 05:33] LABS: BUN/Creatinine Ratio 23.5 (8-20); Calcium 9.3 mg/dL (8.6-10.3); EGFR Non-African American 70.3 (>60); Magnesium 1.8 mg/dL (1.9-2.7); Potassium 3.1 mmol/L (3.5-5.0)
[2020-08-10] MEDS ORDERED: Potassium Chlor 20 meq TAB.ER PO ONE (07:58)
[2020-08-10] MEDS ORDERED: Magnesium Sulfate IV 1GM/100ML 1 GM/100 ML BAG IV ONE (07:59)
[2020-08-10] MEDS: CMCS: Venlafaxine 25 mg TAB (NF) PO SCH ×3 (08:43→19:56)
[2020-08-10] MEDS: Senna TAB 8.6 mg TAB PO SCH ×2 (08:44→19:52)
[2020-08-10] MEDS: Aspirin EC 81 mg TAB.EC (enteric coated) PO SCH (08:44)
[2020-08-11] MEDS ORDERED: oxyCODONE/Acetamin 5/325 mg TAB PO ONE (00:26)
[2020-08-11 05:29] LABS: Hematocrit 54 % (42-52); Hemoglobin 18.2 g/dL (14.0-18.0); Mean Corpuscular HGB Conc 34 g/dL (31-36); Mean Corpuscular Hemoglobin 31 pg (27-31); Mean Corpuscular Volume 92 fL (80-94); Mean Platelet Volume 8.4 fL (7.4-10.4); Platelet Count 358 10^3/uL (150-450); Red Blood Count 5.91 10^6 /uL (4.18-5.48); Red Cell Distribution Width 14 % (10-15); White Blood Count 17.5 10^3/uL (3.5-10.8)
[2020-08-11 05:39] LABS: Anion Gap 10 mmol/L (2-11); BUN/Creatinine Ratio 24.5 (8-20); Blood Urea Nitrogen 26 mg/dL (6-24); CO2 Carbon Dioxide 24 mmol/L (22-32); Calcium 9.6 mg/dL (8.6-10.3); Chloride 100 mmol/L (101-111); EGFR African American 81.3 (>60); EGFR Non-African American 67.2 (>60); Glucose 124 mg/dL (70-100); Potassium 3.2 mmol/L (3.5-5.0); Sodium 134 mmol/L (135-145)
[2020-08-11] MEDS: Aspirin EC 81 mg TAB.EC (enteric coated) PO SCH (08:51)
[2020-08-11] MEDS: Senna TAB 8.6 mg TAB PO SCH ×2 (08:55→20:49)
[2020-08-11] MEDS: CMCS: Venlafaxine 25 mg TAB (NF) PO SCH ×3 (08:57→20:49)
[2020-08-11] MEDS ORDERED: Lactated Ringers 1000 ml BAG 1,000 ML IV SCH ×3 (09:41→15:00)
[2020-08-11 09:59] LABS: C Reactive Protein < 1.00 mg/L (<8.01)
[2020-08-11] MEDS ORDERED: Potassium Chlor 20 meq TAB.ER PO ONE (13:00)
[2020-08-11] MEDS: Morphine ORAL.SOLN 10 mg 2 mg/ml UDC 5 ml (10 mg) PO PRN ×2 (15:15→20:47)
[2020-08-11 17:29] LABS: Hematocrit 52 % (42-52); Hemoglobin 17.2 g/dL (14.0-18.0); Mean Corpuscular HGB Conc 34 g/dL (31-36); Mean Corpuscular Hemoglobin 31 pg (27-31); Mean Corpuscular Volume 92 fL (80-94); Mean Platelet Volume 8.5 fL (7.4-10.4); Platelet Count 337 10^3/uL (150-450); Red Blood Count 5.59 10^6 /uL (4.18-5.48); Red Cell Distribution Width 14 % (10-15); White Blood Count 22.2 10^3/uL (3.5-10.8)
[2020-08-11 17:50] LABS: CO2 Carbon Dioxide 19 mmol/L (22-32); Calcium 8.7 mg/dL (8.6-10.3); Chloride 101 mmol/L (101-111); Sodium 129 mmol/L (135-145)
[2020-08-11 17:53] LABS: Anion Gap 9 mmol/L (2-11)
[2020-08-11 17:55] LABS: BUN/Creatinine Ratio 27.7 (8-20); Blood Urea Nitrogen 28 mg/dL (6-24); EGFR Non-African American 71.1 (>60); Glucose 109 mg/dL (70-100)
[2020-08-12] MEDS: Morphine ORAL.SOLN 10 mg 2 mg/ml UDC 5 ml (10 mg) PO PRN ×2 (03:08→09:25)
[2020-08-12 05:55] LABS: ABS Basophils 0.1 10^3/ul (0-0.2); ABS Eosinophils 0.2 10^3/ul (0-0.6); ABS Monocytes 1.3 10^3/ul (0-0.8); ABS Neutrophils 10.8 10^3/ul (1.5-7.7); Eosinophil % 1.2 %; Hematocrit 49 % (42-52); Hemoglobin 16.3 g/dL (14.0-18.0); Lymphocyte % 19.5 %; Mean Corpuscular HGB Conc 33 g/dL (31-36); Mean Corpuscular Hemoglobin 31 pg (27-31); Mean Corpuscular Volume 92 fL (80-94); Mean Platelet Volume 8.2 fL (7.4-10.4); Nucleated Red Blood Cells % 0.1; Platelet Count 274 10^3/uL (150-450); Red Blood Count 5.34 10^6 /uL (4.18-5.48); Red Cell Distribution Width 14 % (10-15); White Blood Count 15.4 10^3/uL (3.5-10.8)
[2020-08-12 06:13] LABS: Magnesium 1.8 mg/dL (1.9-2.7)
[2020-08-12 07:36] LABS: Calcium 9.2 mg/dL (8.6-10.3); EGFR African American 69.8 (>60); EGFR Non-African American 57.7 (>60); Potassium 3.9 mmol/L (3.5-5.0)
[2020-08-12] MEDS: Aspirin EC 81 mg TAB.EC (enteric coated) PO SCH (09:01)
[2020-08-12] MEDS: Senna TAB 8.6 mg TAB PO SCH (09:07)
[2020-08-12] MEDS: CMCS: Venlafaxine 25 mg TAB (NF) PO SCH ×3 (09:09→20:36)
[2020-08-12] MEDS ORDERED: Magnesium Sulfate 2 gm BAG 2 GM/50 ML BAG IVPB ONE (10:28)
[2020-08-12] MEDS ORDERED: Senna TAB 8.6 mg TAB PO PRN (11:59)
[2020-08-12] MEDS ORDERED: Morphine ER 15 mg TAB ** extended release PO SCH (12:00)
[2020-08-12] MEDS ORDERED: Potassium Chlor 20 meq TAB.ER PO ONE (15:04)
[2020-08-12] MEDS ORDERED: Lactated Ringers 1000 ml BAG 1,000 ML IV SCH (16:00)
[2020-08-12] MEDS ORDERED: Morphine ORAL.SOLN 10 mg 2 mg/ml UDC 5 ml (10 mg) PO PRN ×2 (17:07→17:23)
[2020-08-12] MEDS ORDERED: Morphine ORAL.SOLN 10 mg 2 mg/ml UDC 5 ml (10 mg) PO SCH ×2 (18:00)
[2020-08-12] MEDS: Morphine ER 15 mg TAB ** extended release PO SCH (20:37)
[2020-08-13] MEDS: Morphine ORAL.SOLN 10 mg 2 mg/ml UDC 5 ml (10 mg) PO PRN ×3 (00:11→13:06)
[2020-08-13 05:35] LABS: Calcium 8.9 mg/dL (8.6-10.3); EGFR African American 54.5 (>60); Potassium 3.9 mmol/L (3.5-5.0)
[2020-08-13] MEDS: Aspirin EC 81 mg TAB.EC (enteric coated) PO SCH (07:23)
[2020-08-13] MEDS: Morphine ER 15 mg TAB ** extended release PO SCH (07:24)
[2020-08-13] MEDS: CMCS: Venlafaxine 25 mg TAB (NF) PO SCH ×2 (07:24→13:06)
[2020-08-13] MEDS ORDERED: Lactated Ringers 1000 ml BAG 1,000 ML IV SCH ×2 (08:00)
[2020-08-13 08:09] LABS: Magnesium 2.2 mg/dL (1.9-2.7)
[2020-08-13] MEDS ORDERED: Magnesium Hydroxide LIQ 30 ML UDC PO PRN (09:52)
[2020-08-13 11:37] VITALS: BP 96/48
[2020-08-13 11:52] LABS: BUN/Creatinine Ratio 25.9 (8-20); Calcium 8.6 mg/dL (8.6-10.3); EGFR African American 55.8 (>60); EGFR Non-African American 46.1 (>60); Potassium 3.5 mmol/L (3.5-5.0)
== END 2020-08-13 15:00 ==
LOC: ED 16:29 → ICU 18:11 → MEDTELE 08-04 18:18
PROVIDERS: ADMIT Nurse Practitioner Family; ATTEND Internal Medicine

== ENCOUNTER 2020-09-02 14:57 | Inpatient (IN) ==
[2020-09-02] MEDS ORDERED: Magnesium Sulfate IV 1GM/100ML 1 GM/100 ML BAG IV ONE (15:12)
[2020-09-02] MEDS ORDERED: Diltiazem IV push/loading dose 5 MG/ML 5 ML vial (25 mg) IV SLOW PU ONE (15:13)
[2020-09-02 15:57] LABS: ABS Basophils 0.1 10^3/ul (0-0.2); ABS Lymphocytes 2.4 10^3/ul (1.0-4.8); ABS Monocytes 0.8 10^3/ul (0-0.8); ABS Neutrophils 5.4 10^3/ul (1.5-7.7); Eosinophil % 0.3 %; Hematocrit 43 % (42-52); Hemoglobin 14.7 g/dL (14.0-18.0); Lymphocyte % 27.5 %; Mean Corpuscular HGB Conc 34 g/dL (31-36); Mean Corpuscular Hemoglobin 32 pg (27-31); Mean Corpuscular Volume 92 fL (80-94); Nucleated Red Blood Cells % 0.2; Platelet Count 362 10^3/uL (150-450); Red Blood Count 4.65 10^6 /uL (4.18-5.48); Red Cell Distribution Width 14 % (10-15); White Blood Count 8.8 10^3/uL (3.5-10.8)
[2020-09-02 16:25] LABS: Troponin I 0.07 ng/mL (<0.03)
[2020-09-02 16:27] LABS: ALT 20 U/L (7-52); Albumin 3.7 g/dL (3.2-5.2); Albumin/Globulin Ratio 1.4 (1-3); Alkaline Phosphatase 78 U/L (34-104); Blood Urea Nitrogen 23 mg/dL (6-24); CO2 Carbon Dioxide 26 mmol/L (22-32); Calcium 9.3 mg/dL (8.6-10.3); Chloride 105 mmol/L (101-111); EGFR Non-African American 73.6 (>60); Globulin 2.6 g/dL (2-4); Glucose 121 mg/dL (70-100); Sodium 139 mmol/L (135-145); Total Protein 6.3 g/dL (6.4-8.9)
[2020-09-02 16:30] LABS: AST 26 U/L (13-39); Anion Gap 8 mmol/L (2-11); Magnesium 2.3 mg/dL (1.9-2.7); Potassium 4.1 mmol/L (3.5-5.0)
[2020-09-02 17:03] LABS: TSH Ultra Thyroid Stim Horm 1.07 mcIU/mL (0.34-5.60)
[2020-09-02 17:06] LABS: Acetaminophen < 15 mcg/mL; Salicylate < 2.50 mg/dL (<30)
[2020-09-02 17:08] LABS: Free T4 1.61 ng/dL (0.61-1.12)
[2020-09-02] MEDS ORDERED: Ondansetron 4 mg VIAL 2 MG/ML 2 ml VIAL IV PRN (17:36)
[2020-09-02] MEDS ORDERED: Senna TAB 8.6 mg TAB PO PRN (17:49)
[2020-09-02] MEDS ORDERED: Magnesium Hydroxide LIQ 30 ML UDC PO PRN (17:49)
[2020-09-02] MEDS ORDERED: Diltiazem (ADVAN VIAL) 100 MG/100 ML ADDV.BAG IV SCH ×2 (18:00→20:26)
[2020-09-02] MEDS: CMCS: Venlafaxine 25 mg TAB (NF) PO SCH (20:58)
[2020-09-02] MEDS ORDERED: Venlafaxine 75 mg CAP (NF) PO SCH (21:00)
[2020-09-02 21:13] LABS: Troponin I 0.07 ng/mL (<0.03)
[2020-09-03] MEDS ORDERED: Labetalol IV 5 MG/ML 20 ml VIAL IV PUSH ONE ×2 (08:47→13:47)
[2020-09-03] MEDS: CMCS: Venlafaxine 25 mg TAB (NF) PO SCH ×3 (09:33→21:45)
[2020-09-03 09:50] LABS: ABS Basophils 0.1 10^3/ul (0-0.2); ABS Eosinophils 0.1 10^3/ul (0-0.6); ABS Lymphocytes 1.7 10^3/ul (1.0-4.8); ABS Monocytes 0.6 10^3/ul (0-0.8); Eosinophil % 0.6 %; Hematocrit 46 % (42-52); Hemoglobin 15.6 g/dL (14.0-18.0); Lymphocyte % 17.8 %; Mean Corpuscular HGB Conc 34 g/dL (31-36); Mean Corpuscular Hemoglobin 32 pg (27-31); Mean Corpuscular Volume 93 fL (80-94); Nucleated Red Blood Cells % 0.1; Platelet Count 308 10^3/uL (150-450); Red Blood Count 4.93 10^6 /uL (4.18-5.48); Red Cell Distribution Width 14 % (10-15); White Blood Count 9.4 10^3/uL (3.5-10.8)
[2020-09-03 10:11] LABS: Calcium 9.8 mg/dL (8.6-10.3); EGFR African American 83.1 (>60); EGFR Non-African American 68.7 (>60); Magnesium 2.3 mg/dL (1.9-2.7); Potassium 3.9 mmol/L (3.5-5.0)
[2020-09-03] MEDS ORDERED: Lorazepam PYXIS KEY PRN (11:12)
[2020-09-03] MEDS ORDERED: LORazepam 2 mg VIAL 1 ml IV PUSH PRN (11:12)
[2020-09-03] MEDS: Labetalol IV 5 MG/ML 20 ml VIAL IV PUSH ONE ×2 (13:54→14:03)
[2020-09-03] MEDS ORDERED: Labetalol IV 5 MG/ML 20 ml VIAL IV PUSH PRN (14:45)
[2020-09-03 14:54] LABS: Troponin I 0.04 ng/mL (<0.03)
[2020-09-04] MEDS: CMCS: Venlafaxine 25 mg TAB (NF) PO SCH ×3 (08:58→20:49)
[2020-09-04 09:14] LABS: Calcium 9.7 mg/dL (8.6-10.3); EGFR African American 80.5 (>60); EGFR Non-African American 66.5 (>60); Potassium 4.1 mmol/L (3.5-5.0)
[2020-09-04] MEDS ORDERED: Diltiazem IV push/loading dose 5 MG/ML 5 ML vial (25 mg) IV SLOW PU ONE (18:31)
[2020-09-05] MEDS ORDERED: Labetalol IV 5 MG/ML 20 ml VIAL IV PUSH ONE (03:04)
[2020-09-05] MEDS ORDERED: Diltiazem (ADVAN VIAL) 100 MG/100 ML ADDV.BAG IV SCH (09:00)
[2020-09-05] MEDS: CMCS: Venlafaxine 25 mg TAB (NF) PO SCH ×3 (09:31→20:45)
[2020-09-05] MEDS ORDERED: Diltiazem IV push/loading dose 5 MG/ML 5 ML vial (25 mg) IV SLOW PU ONE (11:04)
[2020-09-06] MEDS ORDERED: Calcium Carb (TUMS) 500 mg CHEW TAB PO PRN (08:31)
[2020-09-06] MEDS: CMCS: Venlafaxine 25 mg TAB (NF) PO SCH ×3 (10:19→21:25)
[2020-09-07] MEDS: CMCS: Venlafaxine 25 mg TAB (NF) PO SCH ×3 (09:44→20:43)
[2020-09-07] MEDS ORDERED: Metoprolol Tartrate 5 mg VIAL 5 ml VIAL (1 mg/ml) IV ONE (14:15)
[2020-09-08] MEDS: CMCS: Venlafaxine 25 mg TAB (NF) PO SCH ×2 (08:12→12:27)
[2020-09-08 11:22] VITALS: BP 92/48
[2020-09-08 11:34] LABS: Plasma Free Metanephrine <0.20 nmol/L (<0.50)
== END 2020-09-08 13:50 | disposition home or self-care (01) ==
LOC: ED 14:57 → MEDTELE 14:57 → ED 20:00
PROVIDERS: ADMIT Internal Medicine; ATTEND Student in an Organized Health Care Education/Training Program

== ENCOUNTER 2021-10-16 16:20 | Inpatient (IN) ==
[2021-10-16] MEDS ORDERED: Ondansetron 4 mg VIAL 2 MG/ML 2 ml VIAL IV ONE (16:38)
[2021-10-16] MEDS ORDERED: Lactated Ringers 1000 ml BAG 1,000 ML IV ONE (16:50)
[2021-10-16 17:04] LABS: ABS Lymphocytes 1.6 10^3/ul (1.0-4.8); ABS Monocytes 0.4 10^3/ul (0-0.8); ABS Neutrophils 10.9 10^3/ul (1.5-7.7); Eosinophil % 0.1 %; Hematocrit 57 % (42-52); Hemoglobin 18.9 g/dL (14.0-18.0); Lymphocyte % 12.6 %; Mean Corpuscular HGB Conc 33 g/dL (31-36); Mean Corpuscular Hemoglobin 29 pg (27-31); Mean Corpuscular Volume 88 fL (80-94); Mean Platelet Volume 8.4 fL (7.4-10.4); Nucleated Red Blood Cells % 0.1; Platelet Count 265 10^3/uL (150-450); Red Blood Count 6.49 10^6 /uL (4.18-5.48); Red Cell Distribution Width 14 % (10-15)
[2021-10-16 17:10] LABS: INR 1.2 (0.86-1.15)
[2021-10-16 17:29] LABS: High Sens Troponin Baseline 9 pg/mL (<20)
[2021-10-16 17:57] LABS: Albumin 4.7 g/dL (3.2-5.2); CO2 Carbon Dioxide 17 mmol/L (22-32); Calcium 10.3 mg/dL (8.6-10.3); Chloride 103 mmol/L (101-111); Sodium 137 mmol/L (135-145)
[2021-10-16] MEDS ORDERED: Labetalol IV 200 MG in NS 0.9% 250 ml 160 ML IV SCH ×3 (18:00→23:25)
[2021-10-16] MEDS ORDERED: Labetalol IV 5 MG/ML 20 ml VIAL IV PUSH ONE (18:01)
[2021-10-16 18:03] LABS: ALT 21 U/L (7-52); Albumin/Globulin Ratio 1.6 (1-3); Alkaline Phosphatase 131 U/L (35-149); Blood Urea Nitrogen 21 mg/dL (6-24); Glucose 207 mg/dL (70-100); Lipase < 10 U/L (11.0-82.0); Total Protein 7.7 g/dL (6.4-8.9); eGFR CKD-EPI 75.6 (>60)
[2021-10-16 18:15] LABS: Anion Gap 17 mmol/L (2-11)
[2021-10-16] MEDS ORDERED: Iohexol 350 (CONTRAST) 500 ML MDV IV ONE ×2 (18:24→19:23)
[2021-10-16 18:41] LABS: High Sensitivity Troponin 1 Hr 9 pg/mL (<20)
[2021-10-16] MEDS ORDERED: Esmolol 10 MG/ML IVPREMIX 2,500 MG/250 ML BAG IV SCH (21:00)
[2021-10-16 22:40] LABS: Magnesium 1.9 mg/dL (1.9-2.7); Potassium Redraw 4.3 mmol/L (3.5-5.0)
[2021-10-16] MEDS ORDERED: Magnesium Sulfate IV 1GM/100ML 1 GM/100 ML BAG IV ONE (22:49)
[2021-10-16] MEDS ORDERED: Ondansetron 4 mg VIAL 2 MG/ML 2 ml VIAL ONE (22:51)
[2021-10-16 22:53] LABS: Magnesium 1.7 mg/dL (1.9-2.7)
[2021-10-16] MEDS: Ondansetron 4 mg VIAL 2 MG/ML 2 ml VIAL IV PRN (22:56)
[2021-10-16] MEDS ORDERED: Lidocaine 4% CREAM (LMX) 5 GM TUBE TOPICAL PRN (23:27)
[2021-10-17] MEDS ORDERED: Albuterol/Ipratropium NEB.SOL (2.5/0.5 MG) 3 ML NEB.SOLN INH PRN (00:13)
[2021-10-17] MEDS: HYDROcodone/ACETAMIN 5/325 mg TAB PO PRN ×3 (00:25→21:13)
[2021-10-17 02:16] LABS: Urine Appearance Clear; Urine Bilirubin Negative (Negative); Urine Blood Negative (Negative); Urine Color Yellow; Urine Glucose Negative (Negative); Urine Ketones Negative (Negative); Urine Nitrite Negative (Negative); Urine Protein 2+(100 mg/dL) (Negative); Urine Urobilinogen Negative (Negative)
[2021-10-17 02:20] LABS: Urine Bacteria Absent (Absent); Urine Red Blood Cell 1+(3-5/hpf) (Absent); Urine Squamous Epithelial Cell Present (Absent); Urine White Blood Cell Trace(0-5/hpf) (Absent)
[2021-10-17 03:06] LABS: TSH Ultra Thyroid Stim Horm 0.01 mcIU/mL (0.34-5.60)
[2021-10-17 04:18] LABS: Urine Specific Gravity > 1.060 (1.002-1.030)
[2021-10-17 06:01] LABS: ABS Basophils 0.1 10^3/ul (0-0.2); ABS Eosinophils 0.1 10^3/ul (0-0.6); ABS Neutrophils 15.2 10^3/ul (1.5-7.7); Eosinophil % 0.3 %; Hematocrit 54 % (42-52); Mean Corpuscular HGB Conc 33 g/dL (31-36); Mean Corpuscular Hemoglobin 30 pg (27-31); Mean Corpuscular Volume 89 fL (80-94); Mean Platelet Volume 8.4 fL (7.4-10.4); Platelet Count 286 10^3/uL (150-450); Red Blood Count 6.09 10^6 /uL (4.18-5.48); Red Cell Distribution Width 14 % (10-15); White Blood Count 18.4 10^3/uL (3.5-10.8)
[2021-10-17 06:50] LABS: Calcium 10.5 mg/dL (8.6-10.3); Magnesium 2.3 mg/dL (1.9-2.7)
[2021-10-17 07:05] LABS: Free T4 1.29 ng/dL (0.61-1.12)
[2021-10-17] MEDS: CMCS: Venlafaxine 25 mg TAB (NF) PO SCH ×3 (07:18→21:15)
[2021-10-17] MEDS: Ondansetron 4 mg VIAL 2 MG/ML 2 ml VIAL IV PRN (07:20)
[2021-10-17] MEDS ORDERED: Prochlorperazine 5 mg/ml 2 ml VIAL (10 mg) IM ONE (07:43)
[2021-10-17] MEDS ORDERED: Labetalol IV 5 MG/ML 20 ml VIAL IV PUSH PRN (08:07)
[2021-10-17] MEDS ORDERED: Pantoprazole VIAL 40 MG VIAL ONE (08:39)
[2021-10-17] MEDS: Pantoprazole VIAL 40 MG VIAL IV SCH (08:44)
[2021-10-17] MEDS ORDERED: Labetalol IV 5 MG/ML 20 ml VIAL IV PUSH ONE (10:04)
[2021-10-17] MEDS ORDERED: Polyethylene Glycol 3350 17 GM PACKET PO PRN (10:08)
[2021-10-17] MEDS: Senna TAB 8.6 mg TAB PO PRN (17:37)
[2021-10-17] MEDS: Labetalol IV 5 MG/ML 20 ml VIAL IV PUSH PRN (19:32)
[2021-10-17] MEDS: Magnesium Hydroxide LIQ 30 ML UDC PO SCH (21:15)
[2021-10-18] MEDS: Labetalol IV 5 MG/ML 20 ml VIAL IV PUSH PRN ×2 (03:02→17:07)
[2021-10-18 06:09] LABS: ABS Basophils 0.2 10^3/ul (0-0.2); ABS Lymphocytes 2.9 10^3/ul (1.0-4.8); ABS Monocytes 1.3 10^3/ul (0-0.8); ABS Neutrophils 18.6 10^3/ul (1.5-7.7); Hematocrit 48 % (42-52); Hemoglobin 16.1 g/dL (14.0-18.0); Lymphocyte % 12.7 %; Mean Corpuscular HGB Conc 34 g/dL (31-36); Mean Corpuscular Hemoglobin 30 pg (27-31); Mean Corpuscular Volume 89 fL (80-94); Platelet Count 256 10^3/uL (150-450); Red Blood Count 5.38 10^6 /uL (4.18-5.48); Red Cell Distribution Width 14 % (10-15)
[2021-10-18 06:37] LABS: Calcium 9.7 mg/dL (8.6-10.3); Magnesium 2.1 mg/dL (1.9-2.7); eGFR CKD-EPI 46.5 (>60)
[2021-10-18] MEDS: CMCS: Venlafaxine 25 mg TAB (NF) PO SCH ×3 (07:19→20:20)
[2021-10-18] MEDS: Pantoprazole VIAL 40 MG VIAL IV SCH (07:20)
[2021-10-18] MEDS: Magnesium Hydroxide LIQ 30 ML UDC PO SCH ×2 (07:46→20:24)
[2021-10-18] MEDS: HYDROcodone/ACETAMIN 5/325 mg TAB PO PRN ×3 (08:49→21:12)
[2021-10-18] MEDS: Ondansetron 4 mg VIAL 2 MG/ML 2 ml VIAL IV PRN (13:02)
[2021-10-19 04:18] LABS: ABS Basophils 0.1 10^3/ul (0-0.2); ABS Lymphocytes 3.1 10^3/ul (1.0-4.8); ABS Neutrophils 9.4 10^3/ul (1.5-7.7); Eosinophil % 0.2 %; Hematocrit 50 % (42-52); Hemoglobin 16.9 g/dL (14.0-18.0); Lymphocyte % 22.9 %; Mean Corpuscular HGB Conc 34 g/dL (31-36); Mean Corpuscular Hemoglobin 30 pg (27-31); Mean Corpuscular Volume 88 fL (80-94); Mean Platelet Volume 8.4 fL (7.4-10.4); Nucleated Red Blood Cells % 0.1; Platelet Count 253 10^3/uL (150-450); Red Blood Count 5.67 10^6 /uL (4.18-5.48); Red Cell Distribution Width 14 % (10-15); White Blood Count 13.7 10^3/uL (3.5-10.8)
[2021-10-19 04:54] LABS: Blood Urea Nitrogen 44 mg/dL (6-24); CO2 Carbon Dioxide 24 mmol/L (22-32); Calcium 9.2 mg/dL (8.6-10.3); Chloride 99 mmol/L (101-111); Glucose 123 mg/dL (70-100); Sodium 133 mmol/L (135-145); eGFR CKD-EPI 54.2 (>60)
[2021-10-19 04:58] LABS: Anion Gap 10 mmol/L (2-11)
[2021-10-19] MEDS: Labetalol IV 5 MG/ML 20 ml VIAL IV PUSH PRN (05:24)
[2021-10-19] MEDS ORDERED: Magnesium Hydroxide LIQ 30 ML UDC PO PRN (07:52)
[2021-10-19] MEDS: Pantoprazole VIAL 40 MG VIAL IV SCH (08:12)
[2021-10-19] MEDS: CMCS: Venlafaxine 25 mg TAB (NF) PO SCH ×3 (08:15→22:16)
[2021-10-19 08:17] LABS: Magnesium 2.2 mg/dL (1.9-2.7)
[2021-10-19] MEDS ORDERED: Potassium Chlor 20 meq TAB.ER PO ONE (09:00)
[2021-10-19] MEDS: HYDROcodone/ACETAMIN 5/325 mg TAB PO PRN ×3 (09:01→22:18)
[2021-10-20 07:24] LABS: ABS Eosinophils 0.1 10^3/ul (0-0.6); ABS Lymphocytes 2.8 10^3/ul (1.0-4.8); ABS Monocytes 0.9 10^3/ul (0-0.8); ABS Neutrophils 4.8 10^3/ul (1.5-7.7); Eosinophil % 0.8 %; Hematocrit 46 % (42-52); Hemoglobin 15.7 g/dL (14.0-18.0); Mean Corpuscular HGB Conc 34 g/dL (31-36); Mean Corpuscular Hemoglobin 30 pg (27-31); Mean Corpuscular Volume 90 fL (80-94); Mean Platelet Volume 8.5 fL (7.4-10.4); Nucleated Red Blood Cells % 0.1; Platelet Count 174 10^3/uL (150-450); Red Blood Count 5.17 10^6 /uL (4.18-5.48); Red Cell Distribution Width 14 % (10-15); White Blood Count 8.6 10^3/uL (3.5-10.8)
[2021-10-20 07:44] LABS: Magnesium 2.3 mg/dL (1.9-2.7); Potassium 4.3 mmol/L (3.5-5.0); eGFR CKD-EPI 59.6 (>60)
[2021-10-20] MEDS: CMCS: Venlafaxine 25 mg TAB (NF) PO SCH ×3 (08:53→20:54)
[2021-10-20] MEDS: Pantoprazole VIAL 40 MG VIAL IV SCH (08:54)
[2021-10-20] MEDS: HYDROcodone/ACETAMIN 5/325 mg TAB PO PRN ×2 (08:54→15:31)
[2021-10-20] MEDS: Ondansetron 4 mg VIAL 2 MG/ML 2 ml VIAL IV PRN (10:52)
[2021-10-20] MEDS: Prochlorperazine 5 mg/ml 2 ml VIAL (10 mg) IV PRN (12:48)
[2021-10-20] MEDS ORDERED: Labetalol IV 5 MG/ML 20 ml VIAL IV PUSH PRN (14:24)
[2021-10-21] MEDS: HYDROcodone/ACETAMIN 5/325 mg TAB PO PRN ×4 (00:21→21:54)
[2021-10-21 08:16] LABS: ABS Eosinophils 0.1 10^3/ul (0-0.6); ABS Lymphocytes 2.4 10^3/ul (1.0-4.8); ABS Neutrophils 9.1 10^3/ul (1.5-7.7); Eosinophil % 0.4 %; Hematocrit 50 % (42-52); Lymphocyte % 19.4 %; Mean Corpuscular HGB Conc 34 g/dL (31-36); Mean Corpuscular Hemoglobin 30 pg (27-31); Mean Corpuscular Volume 90 fL (80-94); Mean Platelet Volume 8.3 fL (7.4-10.4); Nucleated Red Blood Cells % 0.1; Platelet Count 214 10^3/uL (150-450); Red Blood Count 5.58 10^6 /uL (4.18-5.48); Red Cell Distribution Width 13 % (10-15); White Blood Count 12.6 10^3/uL (3.5-10.8)
[2021-10-21] MEDS: CMCS: Venlafaxine 25 mg TAB (NF) PO SCH ×3 (08:31→21:54)
[2021-10-21] MEDS: Senna TAB 8.6 mg TAB PO PRN (08:37)
[2021-10-21] MEDS: Pantoprazole VIAL 40 MG VIAL IV SCH (08:38)
[2021-10-21 09:06] LABS: Calcium 9.6 mg/dL (8.6-10.3); Potassium 4.4 mmol/L (3.5-5.0); eGFR CKD-EPI 50.9 (>60)
[2021-10-22 06:03] LABS: ABS Eosinophils 0.1 10^3/ul (0-0.6); ABS Lymphocytes 3.5 10^3/ul (1.0-4.8); ABS Neutrophils 5.4 10^3/ul (1.5-7.7); Eosinophil % 1.2 %; Hematocrit 48 % (42-52); Hemoglobin 16.1 g/dL (14.0-18.0); Lymphocyte % 34.7 %; Mean Corpuscular HGB Conc 34 g/dL (31-36); Mean Corpuscular Hemoglobin 30 pg (27-31); Mean Corpuscular Volume 90 fL (80-94); Mean Platelet Volume 8.4 fL (7.4-10.4); Nucleated Red Blood Cells % 0.1; Platelet Count 217 10^3/uL (150-450); Red Cell Distribution Width 13 % (10-15); White Blood Count 10.1 10^3/uL (3.5-10.8)
[2021-10-22 06:51] LABS: Calcium 9.5 mg/dL (8.6-10.3); Potassium 4.3 mmol/L (3.5-5.0); eGFR CKD-EPI 40.6 (>60)
[2021-10-22] MEDS ORDERED: NS 0.9% 1000 ml BAG 1,000 ML IV SCH (07:30)
[2021-10-22] MEDS: CMCS: Venlafaxine 25 mg TAB (NF) PO SCH ×3 (08:24→20:16)
[2021-10-22] MEDS: Pantoprazole VIAL 40 MG VIAL IV SCH (08:25)
[2021-10-22] MEDS: HYDROcodone/ACETAMIN 5/325 mg TAB PO PRN (14:12)
[2021-10-22] MEDS: Ondansetron 4 mg VIAL 2 MG/ML 2 ml VIAL IV PRN (15:01)
[2021-10-22] MEDS: Prochlorperazine 5 mg/ml 2 ml VIAL (10 mg) IV PRN (17:03)
[2021-10-22] MEDS ORDERED: hydrALAZINE 20 mg/ml 1 ML Vial IV IV SLOW PU PRN (19:46)
[2021-10-23] MEDS: HYDROcodone/ACETAMIN 5/325 mg TAB PO PRN ×3 (02:11→18:15)
[2021-10-23 06:22] LABS: Hematocrit 48 % (42-52); Hemoglobin 16.3 g/dL (14.0-18.0); Mean Corpuscular HGB Conc 34 g/dL (31-36); Mean Corpuscular Hemoglobin 30 pg (27-31); Mean Corpuscular Volume 88 fL (80-94); Mean Platelet Volume 8.5 fL (7.4-10.4); Platelet Count 263 10^3/uL (150-450); Red Blood Count 5.47 10^6 /uL (4.18-5.48); Red Cell Distribution Width 13 % (10-15); White Blood Count 13.9 10^3/uL (3.5-10.8)
[2021-10-23 06:39] LABS: Calcium 9.6 mg/dL (8.6-10.3); Magnesium 2.1 mg/dL (1.9-2.7); Potassium 4.1 mmol/L (3.5-5.0); eGFR CKD-EPI 60.8 (>60)
[2021-10-23] MEDS: Pantoprazole VIAL 40 MG VIAL IV SCH (08:01)
[2021-10-23] MEDS: CMCS: Venlafaxine 25 mg TAB (NF) PO SCH ×3 (08:01→20:44)
[2021-10-23 09:16] LABS: ABS Basophils 0.1 10^3/ul (0-0.2); ABS Eosinophils 0.1 10^3/ul (0-0.6); ABS Lymphocytes 3.4 10^3/ul (1.0-4.8); ABS Monocytes 1.1 10^3/ul (0-0.8); ABS Neutrophils 9.3 10^3/ul (1.5-7.7); Eosinophil % 0.4 %; Lymphocyte % 24.6 %
[2021-10-24 05:49] LABS: Hematocrit 47 % (42-52); Hemoglobin 15.8 g/dL (14.0-18.0); Mean Corpuscular HGB Conc 34 g/dL (31-36); Mean Corpuscular Hemoglobin 30 pg (27-31); Mean Corpuscular Volume 89 fL (80-94); Mean Platelet Volume 8.2 fL (7.4-10.4); Platelet Count 238 10^3/uL (150-450); Red Blood Count 5.27 10^6 /uL (4.18-5.48); Red Cell Distribution Width 13 % (10-15); White Blood Count 12.6 10^3/uL (3.5-10.8)
[2021-10-24] MEDS: CMCS: Venlafaxine 25 mg TAB (NF) PO SCH (09:28)
[2021-10-24] MEDS: Pantoprazole VIAL 40 MG VIAL IV SCH (09:29)
[2021-10-24 14:21] VITALS: BP 125/82
== END 2021-10-24 14:15 | disposition home or self-care (01) | DRG 304 ==
LOC: ED 16:20 → EDHOLD 22:15 → SUATTDRO 22:15 → ICU 23:53 → MEDTELE 10-19 21:00
PROVIDERS: ADMIT Internal Medicine; ATTEND Hospitalist

== ENCOUNTER 2022-01-30 12:58 | Inpatient (IN) ==
[2022-01-30] MEDS ORDERED: fentaNYL 100 mcg/2 ml 50 MCG/ML VIAL IV SLOW PU PRN (13:27)
[2022-01-30 13:55] LABS: ABS Lymphocytes 1.3 10^3/ul (1.0-4.8); ABS Monocytes 0.3 10^3/ul (0-0.8); ABS Neutrophils 10.5 10^3/ul (1.5-7.7); Eosinophil % 0.1 %; Hematocrit 53 % (42-52); Hemoglobin 17.3 g/dL (14.0-18.0); Lymphocyte % 10.7 %; Mean Corpuscular HGB Conc 33 g/dL (31-36); Mean Corpuscular Hemoglobin 29 pg (27-31); Mean Corpuscular Volume 89 fL (80-94); Nucleated Red Blood Cells % 0.2; Platelet Count 238 10^3/uL (150-450); Red Blood Count 5.88 10^6 /uL (4.18-5.48); Red Cell Distribution Width 14 % (10-15); White Blood Count 12.1 10^3/uL (3.5-10.8)
[2022-01-30 14:18] LABS: High Sens Troponin Baseline 5 pg/mL (<20)
[2022-01-30 14:36] LABS: ALT 23 U/L (7-52); Albumin 5.3 g/dL (3.2-5.2); Albumin/Globulin Ratio 1.4 (1-3); Alkaline Phosphatase 130 U/L (35-149); Blood Urea Nitrogen 19 mg/dL (6-24); CO2 Carbon Dioxide 27 mmol/L (22-32); Calcium 10.2 mg/dL (8.6-10.3); Chloride 96 mmol/L (101-111); Globulin 3.7 g/dL (2-4); Glucose 166 mg/dL (70-100); Lipase 12 U/L (11.0-82.0); Sodium 134 mmol/L (135-145); eGFR CKD-EPI 73.8 (>60)
[2022-01-30] MEDS ORDERED: Labetalol IV 5 MG/ML 20 ml VIAL IV PUSH ONE ×2 (14:39→15:54)
[2022-01-30] MEDS ORDERED: Iohexol 350 (CONTRAST) 500 ML MDV IV ONE (14:42)
[2022-01-30 14:44] LABS: Anion Gap 11 mmol/L (2-11)
[2022-01-30 15:26] LABS: High Sensitivity Troponin 1 Hr 5 pg/mL (<20)
[2022-01-30 15:49] LABS: Urine Appearance Clear; Urine Bilirubin Negative (Negative); Urine Blood Negative (Negative); Urine Color Yellow; Urine Glucose Negative (Negative); Urine Ketones Negative (Negative); Urine Nitrite Negative (Negative); Urine Protein 3+(>=500 mg/dL) (Negative); Urine Specific Gravity 1.018 (1.002-1.030); Urine Urobilinogen Negative (Negative)
[2022-01-30 15:53] LABS: Urine Bacteria Absent (Absent); Urine Red Blood Cell Trace(0-2/hpf) (Absent); Urine Squamous Epithelial Cell Present (Absent); Urine White Blood Cell Trace(0-5/hpf) (Absent)
[2022-01-30] MEDS ORDERED: Ondansetron 4 mg VIAL 2 MG/ML 2 ml VIAL IV ONE (17:53)
[2022-01-30 18:05] LABS: Potassium Redraw 4.2 mmol/L (3.5-5.0)
[2022-01-30] MEDS ORDERED: niCARdipine 0.1MG/ML IVPREMIX 20 MG/200 ML BAG IV SCH (19:00)
[2022-01-30] MEDS ORDERED: Metoprolol Tartrate 5 mg VIAL 5 ml VIAL (1 mg/ml) IV ONE (20:44)
[2022-01-30] MEDS ORDERED: Metoprolol Tartrate 5 mg VIAL 5 ml VIAL (1 mg/ml) IV PRN (22:28)
[2022-01-30] MEDS: Ondansetron 4 mg VIAL 2 MG/ML 2 ml VIAL IV PRN (22:46)
[2022-01-31] MEDS: HYDROcodone/ACETAMIN 5/325 mg TAB PO PRN ×3 (01:14→16:24)
[2022-01-31] MEDS: Ondansetron 4 mg VIAL 2 MG/ML 2 ml VIAL IV PRN ×2 (09:54→16:24)
[2022-02-01] MEDS: Fluticasone NASAL SPRAY 50MCG 16 gm SPRAY BTL BOTH NARES PRN ×2 (05:31→16:03)
[2022-02-01] MEDS: Ondansetron 4 mg VIAL 2 MG/ML 2 ml VIAL IV PRN (05:48)
[2022-02-01 06:11] LABS: ABS Basophils 0.1 10^3/ul (0-0.2); ABS Lymphocytes 2.6 10^3/ul (1.0-4.8); ABS Monocytes 1.1 10^3/ul (0-0.8); ABS Neutrophils 10.4 10^3/ul (1.5-7.7); Hematocrit 47 % (42-52); Hemoglobin 15.5 g/dL (14.0-18.0); Lymphocyte % 18.6 %; Mean Corpuscular HGB Conc 33 g/dL (31-36); Mean Corpuscular Hemoglobin 29 pg (27-31); Mean Corpuscular Volume 89 fL (80-94); Mean Platelet Volume 8.6 fL (7.4-10.4); Platelet Count 245 10^3/uL (150-450); Red Blood Count 5.33 10^6 /uL (4.18-5.48); Red Cell Distribution Width 14 % (10-15); White Blood Count 14.2 10^3/uL (3.5-10.8)
[2022-02-01] MEDS ORDERED: Metoclopramide 5 MG/ML VIAL (10 mg) IV ONE (06:20)
[2022-02-01 06:42] LABS: Calcium 9.4 mg/dL (8.6-10.3); Potassium 3.9 mmol/L (3.5-5.0); eGFR CKD-EPI 38.6 (>60)
[2022-02-01] MEDS: HYDROcodone/ACETAMIN 5/325 mg TAB PO PRN (08:08)
[2022-02-01] MEDS ORDERED: Lactated Ringers 1000 ml BAG 1,000 ML IV ONE (09:48)
[2022-02-02 05:35] LABS: ABS Lymphocytes 2.8 10^3/ul (1.0-4.8); ABS Monocytes 0.9 10^3/ul (0-0.8); ABS Neutrophils 4.4 10^3/ul (1.5-7.7); Eosinophil % 0.2 %; Hematocrit 45 % (42-52); Hemoglobin 15.3 g/dL (14.0-18.0); Lymphocyte % 34.4 %; Mean Corpuscular HGB Conc 34 g/dL (31-36); Mean Corpuscular Hemoglobin 30 pg (27-31); Mean Corpuscular Volume 88 fL (80-94); Mean Platelet Volume 8.6 fL (7.4-10.4); Nucleated Red Blood Cells % 0.1; Platelet Count 198 10^3/uL (150-450); Red Blood Count 5.13 10^6 /uL (4.18-5.48); Red Cell Distribution Width 14 % (10-15); White Blood Count 8.1 10^3/uL (3.5-10.8)
[2022-02-02 05:53] LABS: Albumin 3.8 g/dL (3.2-5.2); Albumin/Globulin Ratio 1.5 (1-3); C Reactive Protein 1.79 mg/L (<8.01); Calcium 8.9 mg/dL (8.6-10.3); Globulin 2.6 g/dL (2-4); Potassium 3.7 mmol/L (3.5-5.0); Total Bilirubin 0.6 mg/dL (0.2-1.0); Total Protein 6.4 g/dL (6.4-8.9); eGFR CKD-EPI 46.5 (>60)
[2022-02-02 08:49] VITALS: BP 148/96
== END 2022-02-02 10:33 | disposition home or self-care (01) | DRG 305 ==
LOC: EDHOLD 12:58 → ED 12:58 → SUATTDRO 21:42 → MEDTELE 01-31 00:35 → SUATTDRO 02-01 09:00
PROVIDERS: ADMIT Student in an Organized Health Care Education/Training Program; ATTEND Internal Medicine

== ENCOUNTER 2022-06-16 08:14 | Inpatient (IN) ==
[2022-06-16 08:59] LABS: ABS Basophils 0.1 10^3/ul (0-0.2); ABS Monocytes 0.4 10^3/ul (0-0.8); ABS Neutrophils 8.6 10^3/ul (1.5-7.7); Eosinophil % 0.4 %; Hematocrit 46 % (42-52); Hemoglobin 15.4 g/dL (14.0-18.0); Lymphocyte % 18.1 %; Mean Corpuscular HGB Conc 33 g/dL (31-36); Mean Corpuscular Hemoglobin 29 pg (27-31); Mean Corpuscular Volume 88 fL (80-94); Mean Platelet Volume 8.1 fL (7.4-10.4); Platelet Count 218 10^3/uL (150-450); Red Blood Count 5.24 10^6 /uL (4.18-5.48); Red Cell Distribution Width 15 % (10-15); White Blood Count 11.1 10^3/uL (3.5-10.8)
[2022-06-16 09:09] LABS: Activated Partial Thrombo Time 37.8 seconds (26.0-38.0); INR 1.26 (0.88-1.18)
[2022-06-16] MEDS ORDERED: Heparin DRIP 25,000 UNITS BAG 25,000 UNITS/500 ML BAG IV SCH (09:30)
[2022-06-16 09:46] LABS: Albumin 4.4 g/dL (3.2-5.2); Albumin/Globulin Ratio 1.8 (1-3); Calcium 9.3 mg/dL (8.6-10.3); Creatinine, Serum 1.03 mg/dL (0.67-1.17); Globulin 2.4 g/dL (2-4); Potassium 4.1 mmol/L (3.5-5.0); Total Bilirubin 0.5 mg/dL (0.2-1.0); Total Protein 6.8 g/dL (6.4-8.9)
[2022-06-16] MEDS: nitroGLYCERIN DRIP 25,000 MCG/250 ML BTL IV SCH (09:50)
[2022-06-16] MEDS ORDERED: Iodixanol (CONTRAST) 320 MG/ML 100 ML SDV IV ONE (10:14)
[2022-06-16] MEDS ORDERED: Morphine 4 MG/ML VIAL (1 ml) IV ONE (10:25)
[2022-06-16 11:02] LABS: High Sensitivity Troponin 1 Hr 111 pg/mL (<20)
[2022-06-16] MEDS ORDERED: Heparin 5000 UNITS/ML 1 mL VIAL ONE (11:34)
[2022-06-16 14:27] LABS: Urine Appearance Clear; Urine Bilirubin Negative (Negative); Urine Blood Negative (Negative); Urine Color Yellow; Urine Glucose Negative (Negative); Urine Ketones Negative (Negative); Urine Nitrite Negative (Negative); Urine Protein Negative (Negative); Urine Specific Gravity 1.021 (1.002-1.030); Urine Urobilinogen Negative (Negative)
[2022-06-16] MEDS ORDERED: Ondansetron 4 mg VIAL 2 MG/ML 2 ml VIAL ONE (14:50)
[2022-06-16] MEDS: Ondansetron 4 mg VIAL 2 MG/ML 2 ml VIAL IV PRN (14:51)
[2022-06-16] MEDS ORDERED: Heparin 5000 UNITS/ML 1 mL VIAL IV SCH (15:00)
[2022-06-16] MEDS ORDERED: Albuterol/Ipratropium NEB.SOL (2.5/0.5 MG) 3 ML NEB.SOLN INH PRN (15:07)
[2022-06-16] MEDS ORDERED: Morphine 2 MG/ML SYRINGE IV ONE ×3 (15:28→18:20)
[2022-06-16] MEDS ORDERED: Morphine 2 MG/ML SYRINGE ONE ×3 (15:34→17:12)
[2022-06-16] MEDS: niCARdipine 0.1MG/ML IVPREMIX 20 MG/200 ML BAG IV SCH ×2 (16:20→20:40)
[2022-06-16] MEDS: Morphine 2 MG/ML SYRINGE IV ONE ×2 (16:34→18:34)
[2022-06-16] MEDS: NON FORMULARY MED (Azelastine 137 mcg (0.1 %) Aerosol,Spray) INTRANASAL SCH (22:09)
[2022-06-17] MEDS: Ondansetron 4 mg VIAL 2 MG/ML 2 ml VIAL IV PRN ×2 (01:21→19:27)
[2022-06-17] MEDS: nitroGLYCERIN DRIP 25,000 MCG/250 ML BTL IV SCH (02:47)
[2022-06-17 04:40] LABS: ABS Basophils 0.1 10^3/ul (0-0.2); ABS Lymphocytes 1.8 10^3/ul (1.0-4.8); ABS Monocytes 0.6 10^3/ul (0-0.8); ABS Neutrophils 11.4 10^3/ul (1.5-7.7); Hematocrit 43 % (42-52); Hemoglobin 14.1 g/dL (14.0-18.0); Lymphocyte % 12.9 %; Mean Corpuscular HGB Conc 33 g/dL (31-36); Mean Corpuscular Hemoglobin 29 pg (27-31); Mean Corpuscular Volume 89 fL (80-94); Mean Platelet Volume 8.1 fL (7.4-10.4); Platelet Count 222 10^3/uL (150-450); Red Blood Count 4.88 10^6 /uL (4.18-5.48); Red Cell Distribution Width 15 % (10-15)
[2022-06-17 05:25] LABS: Albumin 4.1 g/dL (3.2-5.2); Albumin/Globulin Ratio 1.7 (1-3); Calcium 9.1 mg/dL (8.6-10.3); Creatinine, Serum 1.35 mg/dL (0.67-1.17); Globulin 2.4 g/dL (2-4); Magnesium 1.8 mg/dL (1.9-2.7); Phosphorus 3.5 mg/dL (2.5-5.0); Potassium 3.6 mmol/L (3.5-5.0); Total Bilirubin 0.5 mg/dL (0.2-1.0); Total Protein 6.5 g/dL (6.4-8.9); eGFR CKD-EPI 52.7 (>60)
[2022-06-17] MEDS ORDERED: Potassium Chlor 20 meq TAB.ER PO ONE (05:48)
[2022-06-17] MEDS ORDERED: Magnesium Sulfate IV 1GM/100ML 1 GM/100 ML BAG IV ONE (05:49)
[2022-06-17] MEDS ORDERED: Sulfur Hexaflouride MICROSPHR 25 MG VIAL ONE (07:45)
[2022-06-17] MEDS ORDERED: Aspirin EC 81 mg TAB.EC (enteric coated) PO SCH (09:00)
[2022-06-17] MEDS: NS 0.9% 1000 ml BAG 1,000 ML IV SCH (09:46)
[2022-06-17] MEDS ORDERED: Lidocaine 1% MPF 5 ML VIAL ONE (13:07)
[2022-06-17] MEDS ORDERED: Heparin 2 UNITS/ML 1000 mls 2,000 ML IV ONE (13:07)
[2022-06-17] MEDS ORDERED: Iohexol 350 (CONTRAST) 100 ML PAK IV ONE ×2 (13:07→13:37)
[2022-06-17] MEDS ORDERED: Midazolam 5 mg/5 ml VIAL 1 mg/ml 5 ml VIAL (5 mg) ONE (13:12)
[2022-06-17] MEDS ORDERED: Iodixanol 320 (CONTRAST) 100 ML SDV ONE (13:13)
[2022-06-17] MEDS ORDERED: Heparin 1,000 UNIT/ML 10 ml (10,000 UNITS) CATHLAB/DIALYSIS ONE (13:13)
[2022-06-17] MEDS ORDERED: fentaNYL 100 mcg/2 ml 50 MCG/ML VIAL ONE (13:13)
[2022-06-17] MEDS ORDERED: niCARdipine 0.1MG/ML IVPREMIX 20 MG/200 ML BAG IV ONE ×2 (13:14→20:54)
[2022-06-17] MEDS ORDERED: nitroGLYCERIN DRIP 25,000 MCG/250 ML BTL ONE (13:14)
[2022-06-17] MEDS ORDERED: Metoprolol Tartrate 5 mg VIAL 5 ml VIAL (1 mg/ml) ONE (19:28)
[2022-06-17] MEDS: niCARdipine 0.1MG/ML IVPREMIX 20 MG/200 ML BAG IV SCH ×2 (21:00→23:10)
[2022-06-17] MEDS ORDERED: Magnesium Hydroxide LIQ 30 ML UDC PO PRN (22:12)
[2022-06-17] MEDS ORDERED: Prochlorperazine 5 mg/ml 2 ml VIAL (10 mg) IV PRN (22:47)
[2022-06-18] MEDS ORDERED: Morphine 2 MG/ML SYRINGE IV ONE (00:17)
[2022-06-18] MEDS ORDERED: LORazepam 2 mg VIAL 1 ml IV PUSH ONE (00:18)
[2022-06-18] MEDS ORDERED: Lorazepam PYXIS KEY PRN (00:18)
[2022-06-18] MEDS: niCARdipine 0.1MG/ML IVPREMIX 20 MG/200 ML BAG IV SCH ×3 (00:39→07:24)
[2022-06-18] MEDS: Pantoprazole VIAL 40 MG VIAL IV SCH ×2 (00:44→10:45)
[2022-06-18] MEDS: Polyethylene Glycol 3350 17 GM PACKET PO SCH ×3 (00:44→09:05)
[2022-06-18] MEDS: NON FORMULARY MED (Azelastine 137 mcg (0.1 %) Aerosol,Spray) INTRANASAL SCH (01:21)
[2022-06-18] MEDS: NS 0.9% 1000 ml BAG 1,000 ML IV SCH (02:28)
[2022-06-18] MEDS: HYDROcodone/ACETAMIN 5/325 mg TAB PO PRN ×3 (05:13→21:33)
[2022-06-18 05:15] LABS: ABS Basophils 0.1 10^3/ul (0-0.2); ABS Lymphocytes 1.7 10^3/ul (1.0-4.8); ABS Monocytes 0.5 10^3/ul (0-0.8); ABS Neutrophils 10.9 10^3/ul (1.5-7.7); Hematocrit 44 % (42-52); Hemoglobin 14.6 g/dL (14.0-18.0); Lymphocyte % 12.9 %; Mean Corpuscular HGB Conc 33 g/dL (31-36); Mean Corpuscular Hemoglobin 29 pg (27-31); Mean Corpuscular Volume 89 fL (80-94); Mean Platelet Volume 8.1 fL (7.4-10.4); Platelet Count 220 10^3/uL (150-450); Red Blood Count 4.96 10^6 /uL (4.18-5.48); Red Cell Distribution Width 15 % (10-15); White Blood Count 13.2 10^3/uL (3.5-10.8)
[2022-06-18 05:59] LABS: Calcium 8.9 mg/dL (8.6-10.3); Creatinine, Serum 1.03 mg/dL (0.67-1.17); Magnesium 1.9 mg/dL (1.9-2.7); Potassium 3.3 mmol/L (3.5-5.0)
[2022-06-18] MEDS ORDERED: Potassium Chlor 20 meq TAB.ER PO ONE (06:19)
[2022-06-18] MEDS ORDERED: Magnesium Sulfate IV 1GM/100ML 1 GM/100 ML BAG IV ONE (06:20)
[2022-06-19] MEDS: NON FORMULARY MED (Azelastine 137 mcg (0.1 %) Aerosol,Spray) INTRANASAL SCH (02:31)
[2022-06-19 05:58] LABS: ABS Basophils 0.1 10^3/ul (0-0.2); ABS Lymphocytes 2.8 10^3/ul (1.0-4.8); ABS Monocytes 0.6 10^3/ul (0-0.8); ABS Neutrophils 4.4 10^3/ul (1.5-7.7); Eosinophil % 0.2 %; Hematocrit 41 % (42-52); Hemoglobin 13.6 g/dL (14.0-18.0); Lymphocyte % 35.2 %; Mean Corpuscular HGB Conc 33 g/dL (31-36); Mean Corpuscular Hemoglobin 30 pg (27-31); Mean Corpuscular Volume 90 fL (80-94); Mean Platelet Volume 8.4 fL (7.4-10.4); Nucleated Red Blood Cells % 0.2; Platelet Count 183 10^3/uL (150-450); Red Blood Count 4.55 10^6 /uL (4.18-5.48); Red Cell Distribution Width 16 % (10-15); White Blood Count 7.9 10^3/uL (3.5-10.8)
[2022-06-19 06:25] LABS: Calcium 8.6 mg/dL (8.6-10.3); Creatinine, Serum 1.26 mg/dL (0.67-1.17); Magnesium 2.2 mg/dL (1.9-2.7); Potassium 3.5 mmol/L (3.5-5.0); eGFR CKD-EPI 57.3 (>60)
[2022-06-19] MEDS ORDERED: Potassium Chlor 20 meq TAB.ER PO ONE (07:41)
[2022-06-19] MEDS: HYDROcodone/ACETAMIN 5/325 mg TAB PO PRN (08:25)
[2022-06-19] MEDS: Polyethylene Glycol 3350 17 GM PACKET PO SCH (08:37)
[2022-06-19 09:33] VITALS: BP 153/82
== END 2022-06-19 10:45 | disposition home or self-care (01) | DRG 281 ==
LOC: ED 08:14 → EDHOLD 11:47 → ICU 13:17
PROVIDERS: ADMIT Internal Medicine; ATTEND Internal Medicine

== ENCOUNTER 2022-06-22 09:06 | Observation (INO) ==
[2022-06-22 09:48] LABS: ABS Basophils 0.1 10^3/ul (0-0.2); ABS Lymphocytes 2.6 10^3/ul (1.0-4.8); ABS Monocytes 0.9 10^3/ul (0-0.8); ABS Neutrophils 10.3 10^3/ul (1.5-7.7); Hematocrit 53 % (42-52); Hemoglobin 17.9 g/dL (14.0-18.0); Lymphocyte % 18.7 %; Mean Corpuscular HGB Conc 34 g/dL (31-36); Mean Corpuscular Hemoglobin 30 pg (27-31); Mean Corpuscular Volume 89 fL (80-94); Mean Platelet Volume 8.6 fL (7.4-10.4); Platelet Count 336 10^3/uL (150-450); Red Blood Count 5.99 10^6 /uL (4.18-5.48); Red Cell Distribution Width 15 % (10-15); White Blood Count 13.9 10^3/uL (3.5-10.8)
[2022-06-22 09:59] LABS: Activated Partial Thrombo Time 31.9 seconds (26.0-38.0); INR 1.34 (0.88-1.18)
[2022-06-22 10:12] LABS: High Sens Troponin Baseline 80 pg/mL (<20)
[2022-06-22 10:35] LABS: ALT 22 U/L (7-52); Albumin 4.4 g/dL (3.2-5.2); Albumin/Globulin Ratio 1.6 (1-3); Alkaline Phosphatase 81 U/L (35-149); Blood Urea Nitrogen 48 mg/dL (6-24); CO2 Carbon Dioxide 25 mmol/L (22-32); Calcium 9.6 mg/dL (8.6-10.3); Chloride 95 mmol/L (101-111); Creatinine, Serum 1.43 mg/dL (0.67-1.17); Globulin 2.8 g/dL (2-4); Glucose 147 mg/dL (70-100); Sodium 133 mmol/L (135-145); Total Protein 7.2 g/dL (6.4-8.9); eGFR CKD-EPI 49.2 (>60)
[2022-06-22 10:37] LABS: Anion Gap 13 mmol/L (2-11)
[2022-06-22 11:10] LABS: Potassium Redraw 3.2 mmol/L (3.5-5.0)
[2022-06-22 12:01] LABS: C Reactive Protein < 1.00 mg/L (<8.01)
[2022-06-22 13:37] LABS: Erythrocyte Sed Rate 0 mm/Hr (0-19)
[2022-06-22 14:03] LABS: Urine Appearance Clear; Urine Bilirubin Negative (Negative); Urine Blood 2+ (Negative); Urine Color Yellow; Urine Glucose Negative (Negative); Urine Ketones 1+ (Negative); Urine Nitrite Negative (Negative); Urine Protein 1+(30 mg/dL) (Negative); Urine Specific Gravity 1.018 (1.002-1.030); Urine Urobilinogen Negative (Negative)
[2022-06-22 14:09] LABS: Urine Bacteria 1+ (Absent); Urine Red Blood Cell 2+(6-10/hpf) (Absent); Urine White Blood Cell Trace(0-5/hpf) (Absent)
[2022-06-22] MEDS ORDERED: Ondansetron 4 mg VIAL 2 MG/ML 2 ml VIAL IV PRN (15:46)
[2022-06-22] MEDS ORDERED: Prochlorperazine 5 mg/ml 2 ml VIAL (10 mg) IV PRN (16:09)
[2022-06-22] MEDS ORDERED: Albuterol HFA INHALER 8 gm MDI INH PRN (16:16)
[2022-06-22] MEDS ORDERED: SPIRIVA Respimat (tiotropium) 2.5 mcg/inh Inhaler INH PRN (16:17)
[2022-06-22] MEDS: HYDROcodone/ACETAMIN 5/325 mg TAB PO PRN (17:02)
[2022-06-22] MEDS ORDERED: Iodixanol (CONTRAST) 320 MG/ML 100 ML SDV IV ONE (17:03)
[2022-06-22] MEDS: Potassium Chloride IV 40 MEQ in Lactated Ringers 1000 ml BAG 1,000 ML IVPB SCH (17:03)
[2022-06-22 17:04] LABS: TSH Ultra Thyroid Stim Horm 12.44 mcIU/mL (0.34-5.60)
[2022-06-23] MEDS: HYDROcodone/ACETAMIN 5/325 mg TAB PO PRN ×2 (01:35→15:49)
[2022-06-23] MEDS: Potassium Chloride IV 40 MEQ in Lactated Ringers 1000 ml BAG 1,000 ML IVPB SCH (01:35)
[2022-06-23 06:03] LABS: ABS Basophils 0.1 10^3/ul (0-0.2); ABS Lymphocytes 2.4 10^3/ul (1.0-4.8); ABS Neutrophils 11.1 10^3/ul (1.5-7.7); Hematocrit 52 % (42-52); Hemoglobin 17.3 g/dL (14.0-18.0); Lymphocyte % 16.5 %; Mean Corpuscular HGB Conc 33 g/dL (31-36); Mean Corpuscular Hemoglobin 30 pg (27-31); Mean Corpuscular Volume 89 fL (80-94); Mean Platelet Volume 8.5 fL (7.4-10.4); Platelet Count 280 10^3/uL (150-450); Red Blood Count 5.86 10^6 /uL (4.18-5.48); Red Cell Distribution Width 15 % (10-15); White Blood Count 14.6 10^3/uL (3.5-10.8)
[2022-06-23 06:25] LABS: Calcium 9.4 mg/dL (8.6-10.3); Creatinine, Serum 1.29 mg/dL (0.67-1.17); Magnesium 2.4 mg/dL (1.9-2.7); eGFR CKD-EPI 55.7 (>60)
[2022-06-23] MEDS: Polyethylene Glycol 3350 17 GM PACKET PO SCH ×2 (06:30→21:16)
[2022-06-23] MEDS ORDERED: Polyethylene Glycol 3350 17 GM PACKET PO SCH (08:00)
[2022-06-23] MEDS ORDERED: Senna TAB 8.6 mg TAB PO PRN (08:49)
[2022-06-23] MEDS ORDERED: Magnesium Hydroxide LIQ 30 ML UDC PO PRN (08:49)
[2022-06-24 07:02] LABS: ABS Lymphocytes 2.6 10^3/ul (1.0-4.8); ABS Neutrophils 7.3 10^3/ul (1.5-7.7); Eosinophil % 0.1 %; Hematocrit 46 % (42-52); Hemoglobin 15.5 g/dL (14.0-18.0); Lymphocyte % 23.5 %; Mean Corpuscular HGB Conc 34 g/dL (31-36); Mean Corpuscular Hemoglobin 30 pg (27-31); Mean Corpuscular Volume 90 fL (80-94); Mean Platelet Volume 8.7 fL (7.4-10.4); Nucleated Red Blood Cells % 0.1; Platelet Count 259 10^3/uL (150-450); Red Blood Count 5.12 10^6 /uL (4.18-5.48); Red Cell Distribution Width 15 % (10-15); White Blood Count 10.9 10^3/uL (3.5-10.8)
[2022-06-24 07:40] LABS: Albumin 4.2 g/dL (3.2-5.2); Albumin/Globulin Ratio 1.8 (1-3); Calcium 9.6 mg/dL (8.6-10.3); Creatinine, Serum 1.37 mg/dL (0.67-1.17); Globulin 2.3 g/dL (2-4); Magnesium 2.7 mg/dL (1.9-2.7); Potassium 3.7 mmol/L (3.5-5.0); Total Bilirubin 0.8 mg/dL (0.2-1.0); Total Protein 6.5 g/dL (6.4-8.9); eGFR CKD-EPI 51.8 (>60)
[2022-06-24] MEDS: Polyethylene Glycol 3350 17 GM PACKET PO SCH (08:39)
[2022-06-24] MEDS ORDERED: NS 0.9% 1000 ml BAG 1,000 ML IV SCH (11:45)
[2022-06-24] MEDS: HYDROcodone/ACETAMIN 5/325 mg TAB PO PRN (11:49)
[2022-06-24 14:42] VITALS: BP 101/56
== END 2022-06-24 17:30 | disposition home or self-care (01) ==
LOC: ED 09:06 → EDHOLD 09:06 → SUATTDRO 15:46 → MEDTELE 20:06
PROVIDERS: ADMIT Internal Medicine; ATTEND Hospitalist

== ENCOUNTER 2022-10-11 11:30 | Inpatient (IN) ==
[2022-10-11 15:27] LABS: ABS Basophils 0.1 10^3/uL (0.0-0.1); ABS Eosinophils 0.1 10^3/uL (0.0-0.5); ABS Lymphocytes 2.4 10^3/uL (1.0-4.8); ABS Monocytes 0.5 10^3/uL (0.0-1.1); ABS Neutrophils 3.5 10^3/uL (1.5-7.6); ABS Nucleated RBC 0.01 10^3/ul; Eosinophil % 1.4 %; Hematocrit 43.8 % (38-53); Hemoglobin 14.6 g/dL (13.2-16.3); Lymphocyte % 36.5 %; Mean Corpuscular Hemoglobin 30.3 pg (27-33); Mean Corpuscular Hgb Conc 33.3 g/dL (31-36); Mean Platelet Volume 7.9 fL (7.5-11.2); Nucleated Red Blood Cells % 0.1 /100 WBC (0.0-0.4); Platelet Count 182 10^3/uL (150-450); Red Blood Count 4.81 10^6/uL (4.06-5.63); Red Cell Distribution Width 15.3 % (12-17); White Blood Count 6.6 10^3/uL (3.6-10.2)
[2022-10-11 16:14] LABS: Albumin/Globulin Ratio 1.7 (1-3); Calcium 9.4 mg/dL (8.6-10.3); Creatinine, Serum 1.78 mg/dL (0.67-1.17); Globulin 2.3 g/dL (2-4); Total Bilirubin 0.3 mg/dL (0.2-1.0); Total Protein 6.3 g/dL (6.4-8.9); eGFR CKD-EPI 37.6 (>60)
[2022-10-11 18:21] LABS: Urine Appearance Cloudy; Urine Bilirubin Negative (Negative); Urine Blood Negative (Negative); Urine Color Yellow; Urine Glucose Negative (Negative); Urine Ketones Negative (Negative); Urine Nitrite Negative (Negative); Urine Protein Negative (Negative); Urine Specific Gravity 1.016 (1.002-1.030); Urine Urobilinogen Negative (Negative)
[2022-10-11] MEDS ORDERED: Al Hydrox/Mg Hydrox/Simet LIQ 30 ML UDC PO PRN (18:42)
[2022-10-11] MEDS ORDERED: NFT: Azelastine 0.15% NASAL(NF) 30 ML BTL BOTH NARES PRN (18:46)
[2022-10-11] MEDS ORDERED: NFT: Albuterol/Ipratropium RESP(NF) MDI (Combivent Respimat) INH PRN (18:52)
[2022-10-11] MEDS: HYDROcodone/ACETAMIN 5/325 mg TAB PO SCH (20:43)
[2022-10-12 08:11] LABS: HDL Cholesterol 37.9 mg/dL
[2022-10-12] MEDS: Vitamin THERAPEUTIC TAB PO SCH (08:37)
[2022-10-12] MEDS: HYDROcodone/ACETAMIN 5/325 mg TAB PO SCH ×3 (08:37→21:01)
[2022-10-13] MEDS: Vitamin THERAPEUTIC TAB PO SCH (08:49)
[2022-10-13] MEDS: HYDROcodone/ACETAMIN 5/325 mg TAB PO SCH ×3 (08:51→20:29)
[2022-10-14] MEDS: HYDROcodone/ACETAMIN 5/325 mg TAB PO SCH ×3 (08:08→20:23)
[2022-10-14 13:58] LABS: Albumin/Globulin Ratio 1.6 (1-3); Calcium 9.3 mg/dL (8.6-10.3); Creatinine, Serum 1.26 mg/dL (0.67-1.17); Globulin 2.5 g/dL (2-4); Total Bilirubin 0.4 mg/dL (0.2-1.0); Total Protein 6.5 g/dL (6.4-8.9); eGFR CKD-EPI 56.9 (>60)
[2022-10-15] MEDS: HYDROcodone/ACETAMIN 5/325 mg TAB PO SCH ×3 (09:21→19:22)
[2022-10-16] MEDS: HYDROcodone/ACETAMIN 5/325 mg TAB PO SCH ×3 (08:51→20:19)
[2022-10-17] MEDS: HYDROcodone/ACETAMIN 5/325 mg TAB PO SCH ×3 (08:42→20:00)
[2022-10-18] MEDS: HYDROcodone/ACETAMIN 5/325 mg TAB PO SCH ×3 (08:26→20:10)
[2022-10-19] MEDS: HYDROcodone/ACETAMIN 5/325 mg TAB PO SCH ×2 (08:55→14:09)
[2022-10-19 09:10] VITALS: BP 169/80
== END 2022-10-19 13:50 | disposition home or self-care (01) | DRG 885 ==
LOC: ED 11:30 → EDHOLD 18:42 → BSU 20:19
PROVIDERS: ADMIT Psychiatry & Neurology Psychiatry; ATTEND Psychiatry & Neurology Psychiatry

== ENCOUNTER 2023-01-03 15:12 | Inpatient (IN) ==
[2023-01-03] MEDS ORDERED: NS 0.9% 1000 ml BAG 1,000 ML IV ONE ×2 (15:44→17:24)
[2023-01-03 16:00] LABS: ABS Basophils 0.1 10^3/uL (0.0-0.1); ABS Eosinophils 0.1 10^3/uL (0.0-0.5); ABS Lymphocytes 3.8 10^3/uL (1.0-4.8); ABS Monocytes 1.1 10^3/uL (0.0-1.1); ABS Neutrophils 4.8 10^3/uL (1.5-7.6); ABS Nucleated RBC 0.01 10^3/ul; Hematocrit 43.2 % (38-53); Hemoglobin 14.6 g/dL (13.2-16.3); Lymphocyte % 38.3 %; Mean Corpuscular Hemoglobin 29.7 pg (27-33); Mean Corpuscular Hgb Conc 33.7 g/dL (31-36); Mean Corpuscular Volume 88.2 fL (80-97); Nucleated Red Blood Cells % 0.1 /100 WBC (0.0-0.4); Platelet Count 255 10^3/uL (150-450); Red Blood Count 4.89 10^6/uL (4.06-5.63); Red Cell Distribution Width 14.7 % (12-17); White Blood Count 9.8 10^3/uL (3.6-10.2)
[2023-01-03 16:17] LABS: ALT 19 U/L (7-52); AST 12 U/L (13-39); Albumin 4.1 g/dL (3.2-5.2); Albumin/Globulin Ratio 1.9 (1-3); Alkaline Phosphatase 68 U/L (35-149); Anion Gap 14 mmol/L (2-16); C Reactive Protein < 1.00 mg/L (<8.01); CO2 Carbon Dioxide 23 mmol/L (22-32); Calcium 8.9 mg/dL (8.6-10.3); Chloride 95 mmol/L (101-111); Creatinine, Serum 5.08 mg/dL (0.67-1.17); Globulin 2.2 g/dL (2-4); Glucose 109 mg/dL (70-100); INR 0.99 (0.83-1.13); Magnesium 2.9 mg/dL (1.9-2.7); Potassium 3.5 mmol/L (3.5-5.0); Sodium 132 mmol/L (135-145); Total Protein 6.3 g/dL (6.4-8.9); eGFR CKD-EPI 10.7 (>60)
[2023-01-03 16:22] LABS: High Sens Troponin Baseline 21 pg/mL (<20)
[2023-01-03] MEDS ORDERED: Piperacillin/Tazobac 3.375 BAG 3.375 GM/100 ML BAG IV ONE (16:22)
[2023-01-03 16:53] LABS: Alcohol, S < 13 mg/dL (<13)
[2023-01-03 16:59] LABS: Urine Appearance Cloudy; Urine Bilirubin Negative (Negative); Urine Blood Negative (Negative); Urine Color Amber; Urine Glucose Negative (Negative); Urine Ketones Negative (Negative); Urine Nitrite Negative (Negative); Urine Protein Negative (Negative); Urine Specific Gravity 1.016 (1.002-1.030); Urine Urobilinogen Negative (Negative)
[2023-01-03 17:01] LABS: Blood Urea Nitrogen 137 mg/dL (6-24)
[2023-01-03 17:16] LABS: High Sensitivity Troponin 1 Hr 17 pg/mL (<20)
[2023-01-03 17:55] LABS: Urine Benzodiazepine Screen None Detected (None Detect); Urine Cannabinoids Screen Presumptive Positive (None Detect); Urine Opiates Screen Presumptive Positive (None Detect)
[2023-01-03] MEDS: NS 0.9% 1000 ml BAG 1,000 ML IV SCH (22:15)
[2023-01-03 22:23] LABS: Calcium 7.9 mg/dL (8.6-10.3); Potassium 4.1 mmol/L (3.5-5.0); eGFR CKD-EPI 14.2 (>60)
[2023-01-04] MEDS: NS 0.9% 1000 ml BAG 1,000 ML IV SCH (01:09)
[2023-01-04] MEDS ORDERED: NS 0.9% 1000 ml BAG 2,000 ML IV SCH ×3 (03:39→09:43)
[2023-01-04 05:28] LABS: Calcium 8.1 mg/dL (8.6-10.3); Creatinine, Serum 2.89 mg/dL (0.67-1.17); Magnesium 2.6 mg/dL (1.9-2.7); Potassium 3.5 mmol/L (3.5-5.0)
[2023-01-04] MEDS ORDERED: Haloperidol 5 mg/ml SDV IV/IM 5 MG/ML AMP IV SLOW PU ONE ×2 (16:48→16:58)
[2023-01-04] MEDS ORDERED: Haloperidol 5 mg/ml SDV IV/IM 5 MG/ML AMP IM ONE (17:16)
[2023-01-04] MEDS ORDERED: Haloperidol 5 mg/ml SDV IV/IM 5 MG/ML AMP IV SLOW PU PRN (17:32)
[2023-01-05 06:35] LABS: Calcium 9.4 mg/dL (8.6-10.3); Creatinine, Serum 1.13 mg/dL (0.67-1.17); Magnesium 2.2 mg/dL (1.9-2.7); Potassium 3.9 mmol/L (3.5-5.0); eGFR CKD-EPI 64.9 (>60)
[2023-01-05] MEDS ORDERED: ALBUTEROL INH PRN (09:18)
[2023-01-05] MEDS ORDERED: IPRATROPIUM RESP MDI INH PRN (09:18)
[2023-01-06 06:22] LABS: Calcium 9.5 mg/dL (8.6-10.3); Creatinine, Serum 0.86 mg/dL (0.67-1.17); Potassium 4.1 mmol/L (3.5-5.0); eGFR CKD-EPI 86.5 (>60)
[2023-01-06] MEDS ORDERED: Albuterol/Ipratropium NEB.SOL (2.5/0.5 MG) 3 ML NEB.SOLN INH PRN (08:21)
[2023-01-06 10:55] VITALS: BP 153/94
== END 2023-01-06 13:35 | disposition home or self-care (01) | DRG 683 ==
LOC: EDHOLD 15:12 → ED 15:12 → SUATTDRO 19:42 → MEDTELE 23:13 → SUATTDRO 01-05 11:00
PROVIDERS: ADMIT Student in an Organized Health Care Education/Training Program; ATTEND Internal Medicine

== ENCOUNTER 2023-06-05 16:36 | Inpatient (IN) ==
[2023-06-05 17:27] LABS: ABS Basophils 0.1 10^3/uL (0.0-0.1); ABS Lymphocytes 1.8 10^3/uL (1.0-4.8); ABS Monocytes 0.5 10^3/uL (0.0-1.1); ABS Neutrophils 10.3 10^3/uL (1.5-7.6); ABS Nucleated RBC 0.01 10^3/ul; Hematocrit 50.3 % (38-53); Hemoglobin 16.6 g/dL (13.2-16.3); Lymphocyte % 14.3 %; Mean Corpuscular Hemoglobin 28.8 pg (27-33); Mean Corpuscular Hgb Conc 33.1 g/dL (31-36); Mean Corpuscular Volume 87.1 fL (80-97); Mean Platelet Volume 8.2 fL (7.5-11.2); Nucleated Red Blood Cells % 0.1 %/100WBC (0.0-0.8); Platelet Count 316 10^3/uL (150-450); Red Blood Count 5.78 10^6/uL (4.06-5.63); Red Cell Distribution Width 16.4 % (12-17); White Blood Count 12.7 10^3/uL (3.6-10.2)
[2023-06-05 17:36] LABS: INR 1.24 (0.83-1.13)
[2023-06-05 17:46] LABS: ALT 24 U/L (7-52); AST 27 U/L (13-39); Albumin/Globulin Ratio 1.5 (1-3); Alkaline Phosphatase 94 U/L (35-149); Anion Gap 18 mmol/L (2-16); Blood Urea Nitrogen 19 mg/dL (6-24); C Reactive Protein 1.89 mg/L (<8.01); CO2 Carbon Dioxide 19 mmol/L (22-32); Calcium 10.8 mg/dL (8.6-10.3); Chloride 97 mmol/L (101-111); Creatinine, Serum 1.06 mg/dL (0.67-1.17); Globulin 3.3 g/dL (2-4); Glucose 148 mg/dL (70-100); Potassium 3.7 mmol/L (3.5-5.0); Sodium 134 mmol/L (135-145); Total Bilirubin 0.9 mg/dL (0.2-1.0); Total Protein 8.3 g/dL (6.4-8.9); eGFR CKD-EPI 70.1 (>60)
[2023-06-05] MEDS: Lactated Ringers 1000 ml BAG 1,000 ML IV ONE (17:49)
[2023-06-05] MEDS: Ondansetron 4 mg VIAL 2 MG/ML 2 ml VIAL IV ONE (17:49)
[2023-06-05 17:52] LABS: High Sens Troponin Baseline 9 pg/mL (<20)
[2023-06-05] MEDS ORDERED: Lorazepam PYXIS KEY PRN (18:38)
[2023-06-05] MEDS: LORazepam 2 mg VIAL 1 ml IV PUSH ONE (18:46)
[2023-06-05 18:51] LABS: High Sensitivity Troponin 1 Hr 9 pg/mL (<20)
[2023-06-05] MEDS: Metoprolol Tartrate 5 mg VIAL 5 ml VIAL (1 mg/ml) IV ONE (20:00)
[2023-06-05 20:04] LABS: Urine Appearance Clear; Urine Bilirubin Negative (Negative); Urine Blood 2+ (Negative); Urine Color Yellow; Urine Glucose Negative (Negative); Urine Ketones 2+ (Negative); Urine Nitrite Negative (Negative); Urine Protein 2+(100 mg/dL) (Negative); Urine Specific Gravity 1.011 (1.002-1.030); Urine Urobilinogen Negative (Negative)
[2023-06-05 20:20] LABS: Urine Bacteria Absent (Absent); Urine Red Blood Cell 3+(>10/hpf) (Absent); Urine White Blood Cell Trace(0-5/hpf) (Absent)
[2023-06-05 20:21] LABS: Urine Benzodiazepine Screen None Detected (None Detect); Urine Cannabinoids Screen Presumptive Positive (None Detect); Urine Opiates Screen Presumptive Positive (None Detect)
[2023-06-05] MEDS: Iohexol 350 (CONTRAST) 500 ML MDV IV ONE (21:01)
[2023-06-05] MEDS: Metoclopramide 5 MG/ML VIAL (10 mg) IV ONE (22:19)
[2023-06-05] MEDS: Morphine 4 MG/ML VIAL (1 ml) IV ONE (22:23)
[2023-06-05 22:44] LABS: Creatine Kinase 66 U/L (10-223)
[2023-06-05 23:17] LABS: Magnesium 1.9 mg/dL (1.9-2.7)
[2023-06-05] MEDS: NS 0.9% 1000 ml BAG 1,000 ML IV SCH (23:55)
[2023-06-06] MEDS: Enoxaparin 40 MG/0.4 ML SYR SUBCUT SCH (00:03)
[2023-06-06] MEDS ORDERED: Morphine 2 MG/ML SYRINGE IV PRN (00:59)
[2023-06-06] MEDS: Lactulose 30 ml UDC PO SCH (01:00)
[2023-06-06 02:12] LABS: Acetaminophen < 15 mcg/mL; Salicylate < 2.50 mg/dL (<30)
[2023-06-06 05:52] LABS: ABS Basophils 0.1 10^3/uL (0.0-0.1); ABS Lymphocytes 1.6 10^3/uL (1.0-4.8); ABS Monocytes 0.5 10^3/uL (0.0-1.1); ABS Neutrophils 11.4 10^3/uL (1.5-7.6); ABS Nucleated RBC 0.01 10^3/ul; Hematocrit 49.3 % (38-53); Hemoglobin 16.4 g/dL (13.2-16.3); Lymphocyte % 11.7 %; Mean Corpuscular Hemoglobin 29.3 pg (27-33); Mean Corpuscular Hgb Conc 33.3 g/dL (31-36); Mean Corpuscular Volume 87.8 fL (80-97); Mean Platelet Volume 8.2 fL (7.5-11.2); Nucleated Red Blood Cells % 0.1 %/100WBC (0.0-0.8); Platelet Count 300 10^3/uL (150-450); Red Blood Count 5.61 10^6/uL (4.06-5.63); Red Cell Distribution Width 16.8 % (12-17); White Blood Count 13.6 10^3/uL (3.6-10.2)
[2023-06-06 06:07] LABS: Albumin 4.3 g/dL (3.2-5.2); Albumin/Globulin Ratio 1.6 (1-3); Calcium 9.8 mg/dL (8.6-10.3); Creatinine, Serum 1.04 mg/dL (0.67-1.17); Globulin 2.7 g/dL (2-4); Magnesium 1.9 mg/dL (1.9-2.7); Potassium 3.4 mmol/L (3.5-5.0); Total Bilirubin 0.6 mg/dL (0.2-1.0); eGFR CKD-EPI 71.7 (>60)
[2023-06-06] MEDS ORDERED: Thiamine 100 MG/ML 2 ml VIAL (200 mg) IV ONE (06:12)
[2023-06-06] MEDS: Ondansetron ODT 4 mg TAB 4 MG TAB SL PRN (06:36)
[2023-06-06] MEDS ORDERED: Zosyn per Pharmacy NOTE FOLLOW UP SCH (07:00)
[2023-06-06] MEDS: Piperacillin/Tazobac 3.375 BAG 3.375 GM/100 ML BAG IV ONE (07:47)
[2023-06-06] MEDS: Thiamine IV 100 MG in NS 0.9% 50 ML Q24H IV ONE (08:37)
[2023-06-06] MEDS: Potassium EFFERVES 25 meq TAB PO ONE (08:44)
[2023-06-06] MEDS: Polyethylene Glycol 3350 17 GM PACKET PO SCH ×2 (08:49→09:10)
[2023-06-06] MEDS ORDERED: Senna TAB 8.6 mg TAB PO SCH (09:00)
[2023-06-06] MEDS ORDERED: Albuterol/Ipratropium NEB.SOL (2.5/0.5 MG) 3 ML NEB.SOLN INH PRN (09:35)
[2023-06-06] MEDS ORDERED: Magnesium Hydroxide LIQ 30 ML UDC PO PRN (10:36)
[2023-06-06] MEDS: HYDROcodone/ACETAMIN 5/325 mg TAB PO PRN (10:42)
[2023-06-06] MEDS: Magnesium Hydroxide LIQ 30 ML UDC PO SCH (14:10)
[2023-06-06] MEDS: Senna TAB 8.6 mg TAB PO SCH (19:26)
[2023-06-07 06:04] LABS: ABS Lymphocytes 2.7 10^3/uL (1.0-4.8); ABS Monocytes 1.2 10^3/uL (0.0-1.1); ABS Neutrophils 9.3 10^3/uL (1.5-7.6); ABS Nucleated RBC 0.01 10^3/ul; Hematocrit 41.5 % (38-53); Lymphocyte % 20.6 %; Mean Corpuscular Hemoglobin 29.4 pg (27-33); Mean Corpuscular Hgb Conc 33.7 g/dL (31-36); Mean Corpuscular Volume 87.4 fL (80-97); Platelet Count 229 10^3/uL (150-450); Red Blood Count 4.75 10^6/uL (4.06-5.63); Red Cell Distribution Width 16.6 % (12-17); White Blood Count 13.2 10^3/uL (3.6-10.2)
[2023-06-07 06:21] LABS: Calcium 9.2 mg/dL (8.6-10.3); Creatinine, Serum 1.94 mg/dL (0.67-1.17); Magnesium 2.3 mg/dL (1.9-2.7); Potassium 4.1 mmol/L (3.5-5.0); eGFR CKD-EPI 33.9 (>60)
[2023-06-07 11:51] LABS: Urine Appearance Clear; Urine Bilirubin Negative (Negative); Urine Blood Negative (Negative); Urine Color Yellow; Urine Glucose Negative (Negative); Urine Ketones Trace (Negative); Urine Nitrite Negative (Negative); Urine Protein 1+(30 mg/dL) (Negative); Urine Specific Gravity 1.017 (1.002-1.030); Urine Urobilinogen Negative (Negative)
[2023-06-07 12:14] LABS: Urine Bacteria Absent (Absent); Urine Red Blood Cell Trace(0-2/hpf) (Absent); Urine White Blood Cell Trace(0-5/hpf) (Absent)
[2023-06-07 16:29] LABS: Calcium 9.6 mg/dL (8.6-10.3); Creatinine, Serum 1.3 mg/dL (0.67-1.17); Potassium 4.3 mmol/L (3.5-5.0); eGFR CKD-EPI 54.8 (>60)
[2023-06-08 06:25] LABS: ABS Lymphocytes 2.3 10^3/uL (1.0-4.8); ABS Monocytes 0.9 10^3/uL (0.0-1.1); ABS Neutrophils 6.6 10^3/uL (1.5-7.6); ABS Nucleated RBC 0.01 10^3/ul; Eosinophil % 0.1 %; Hematocrit 42.5 % (38-53); Hemoglobin 14.6 g/dL (13.2-16.3); Mean Corpuscular Hemoglobin 29.9 pg (27-33); Mean Corpuscular Hgb Conc 34.3 g/dL (31-36); Mean Corpuscular Volume 87.2 fL (80-97); Mean Platelet Volume 8.1 fL (7.5-11.2); Nucleated Red Blood Cells % 0.1 %/100WBC (0.0-0.8); Platelet Count 227 10^3/uL (150-450); Red Blood Count 4.87 10^6/uL (4.06-5.63); Red Cell Distribution Width 16.9 % (12-17); White Blood Count 9.9 10^3/uL (3.6-10.2)
[2023-06-08 06:48] LABS: Calcium 9.2 mg/dL (8.6-10.3); Creatinine, Serum 1.53 mg/dL (0.67-1.17); Magnesium 2.3 mg/dL (1.9-2.7); Potassium 3.7 mmol/L (3.5-5.0); eGFR CKD-EPI 45.1 (>60)
[2023-06-08 09:29] VITALS: BP 112/66
== END 2023-06-08 13:00 | disposition home or self-care (01) | DRG 92 ==
LOC: ED 16:36 → EDHOLD 16:36 → SUATTDRO 22:47 → MEDTELE 06-06 00:20 → SUATTDRO 06-07 16:30
PROVIDERS: ADMIT Internal Medicine; ATTEND Student in an Organized Health Care Education/Training Program

== ENCOUNTER 2024-01-01 21:38 | Inpatient (IN) ==
[2024-01-01 22:13] LABS: ABS Basophils 0.1 10^3/uL (0.0-0.1); ABS Lymphocytes 1.3 10^3/uL (1.0-4.8); ABS Monocytes 0.5 10^3/uL (0.0-1.1); ABS Neutrophils 12.5 10^3/uL (1.5-7.6); Hematocrit 46.1 % (38-53); Hemoglobin 15.3 g/dL (13.2-16.3); Lymphocyte % 8.8 %; Mean Corpuscular Hgb Conc 33.2 g/dL (31-36); Mean Corpuscular Volume 87.4 fL (80-97); Mean Platelet Volume 8.1 fL (7.5-11.2); Platelet Count 309 10^3/uL (150-450); Red Blood Count 5.27 10^6/uL (4.06-5.63); Red Cell Distribution Width 15.2 % (12-17); White Blood Count 14.4 10^3/uL (3.6-10.2)
[2024-01-01] MEDS: Ondansetron 4 mg VIAL 2 MG/ML 2 ml VIAL IV ONE (22:25)
[2024-01-01] MEDS: Lactated Ringers 1000 ml BAG 1,000 ML IV ONE (22:25)
[2024-01-01] MEDS: Pantoprazole VIAL 40 MG VIAL IV ONE (22:37)
[2024-01-01 22:49] LABS: Activated Partial Thrombo Time 31.4 seconds (26.0-38.0); INR 1.29 (0.85-1.14)
[2024-01-01 22:56] LABS: ALT 27 U/L (7-52); AST 20 U/L (13-39); Albumin 4.7 g/dL (3.2-5.2); Albumin/Globulin Ratio 1.6 (1-3); Alkaline Phosphatase 102 U/L (35-149); Anion Gap 16 mmol/L (2-16); Blood Urea Nitrogen 19 mg/dL (6-24); C Reactive Protein 1.72 mg/L (<8.01); CO2 Carbon Dioxide 23 mmol/L (22-32); Calcium 9.8 mg/dL (8.6-10.3); Chloride 99 mmol/L (101-111); Creatinine, Serum 0.95 mg/dL (0.67-1.17); Glucose 194 mg/dL (70-100); Lipase < 10 U/L (11.0-82.0); Potassium 3.8 mmol/L (3.5-5.0); Sodium 138 mmol/L (135-145); Total Bilirubin 0.7 mg/dL (0.2-1.0); Total Protein 7.7 g/dL (6.4-8.9); eGFR CKD-EPI 79.4 (>60)
[2024-01-02 00:07] LABS: Urine Appearance Clear; Urine Bilirubin Negative (Negative); Urine Blood Negative (Negative); Urine Color Colorless; Urine Glucose Negative (Negative); Urine Ketones 1+ (Negative); Urine Nitrite Negative (Negative); Urine Protein Trace (Negative); Urine Specific Gravity 1.011 (1.002-1.030); Urine Urobilinogen Negative (Negative)
[2024-01-02] MEDS ORDERED: Ondansetron 4 mg VIAL 2 MG/ML 2 ml VIAL ONE (05:12)
[2024-01-02] MEDS: Ondansetron 4 mg VIAL 2 MG/ML 2 ml VIAL IV PRN (05:13)
[2024-01-02 05:19] LABS: Hematocrit 44.7 % (38-53)
[2024-01-02] MEDS ORDERED: Albuterol/Ipratropium NEB.SOL (2.5/0.5 MG) 3 ML NEB.SOLN INH PRN (05:29)
[2024-01-02] MEDS: Iohexol 300 (CONTRAST) 10 ML SDV IV ONE (07:51)
[2024-01-02] MEDS: Pantoprazole VIAL 40 MG VIAL IV SCH (09:24)
[2024-01-02] MEDS: DULoxetine DR 20 mg CAP PO SCH (09:25)
[2024-01-02] MEDS: Polyethylene Glycol 3350 17 GM PACKET PO SCH (09:47)
[2024-01-02 10:52] LABS: Mean Corpuscular Hemoglobin 29.5 pg (27-33); Mean Corpuscular Hgb Conc 33.7 g/dL (31-36); Mean Corpuscular Volume 87.4 fL (80-97); Mean Platelet Volume 8.8 fL (7.5-11.2); Platelet Count 315 10^3/uL (150-450); Red Blood Count 5.15 10^6/uL (4.06-5.63); Red Cell Distribution Width 15.4 % (12-17); White Blood Count 14.7 10^3/uL (3.6-10.2)
[2024-01-02 11:24] LABS: ABS Basophils 0.2 10^3/uL (0.0-0.1); ABS Lymphocytes 1.7 10^3/uL (1.0-4.8); ABS Monocytes 0.6 10^3/uL (0.0-1.1); ABS Neutrophils 12.2 10^3/uL (1.5-7.6); ABS Nucleated RBC 0.01 10^3/ul; Eosinophil % 0.3 %; Lymphocyte % 11.4 %; Nucleated Red Blood Cells % 0.1 %/100WBC (0.0-0.8)
[2024-01-02] MEDS ORDERED: Naloxone 0.4 mg VIAL 0.4 mg/ml 1 ml VIAL IV PUSH PRN (13:21)
[2024-01-02] MEDS ORDERED: Flumazenil 0.5 mg/5 ml 0.1 MG/ML 5 ml VIAL IV PRN (13:21)
[2024-01-02] MEDS ORDERED: Midazolam 10 mg/10 ml VIAL 1 mg/ml 10 ml VIAL (10 mg) ONE (13:49)
[2024-01-02] MEDS ORDERED: fentaNYL 100 mcg/2 ml 50 MCG/ML VIAL ONE (13:49)
[2024-01-02] MEDS: fentaNYL 100 mcg/2 ml 50 MCG/ML VIAL IV SLOW PU ONE (16:41)
[2024-01-02] MEDS: Lactated Ringers 1000 ml BAG 1,000 ML IV ONE (16:41)
[2024-01-02] MEDS: Ondansetron 4 mg VIAL 2 MG/ML 2 ml VIAL IV ONE (16:42)
[2024-01-02] MEDS: Midazolam 10 mg/10 ml VIAL 1 mg/ml 10 ml VIAL (10 mg) IV SLOW PU ONE (16:42)
[2024-01-02] MEDS: HYDROcodone/ACETAMIN 5/325 mg TAB PO PRN (22:16)
[2024-01-02] MEDS: Senna TAB 8.6 mg TAB PO SCH (22:17)
[2024-01-02] MEDS: Latanoprost 0.005% 2.5 ml BTL BOTH EYES SCH (22:19)
[2024-01-02 23:25] LABS: Urine Appearance Clear; Urine Bilirubin Negative (Negative); Urine Blood Trace (Negative); Urine Color Yellow; Urine Glucose Negative (Negative); Urine Ketones Trace (Negative); Urine Nitrite Negative (Negative); Urine Protein 1+ (>=30 mg/dL) (Negative); Urine Specific Gravity 1.028 (1.002-1.030); Urine Urobilinogen Negative (Negative)
[2024-01-02 23:31] LABS: Urine Bacteria Absent /HPF (Absent); Urine Red Blood Cell Trace(0-2/hpf) /HPF (0-Trace); Urine White Blood Cell Trace(0-5/hpf) /HPF (0-Trace)
[2024-01-03 06:20] LABS: Hematocrit 47.8 % (38-53); Hemoglobin 15.9 g/dL (13.2-16.3); Mean Corpuscular Hgb Conc 33.3 g/dL (31-36); Mean Corpuscular Volume 87.1 fL (80-97); Mean Platelet Volume 8.2 fL (7.5-11.2); Platelet Count 294 10^3/uL (150-450); Red Blood Count 5.49 10^6/uL (4.06-5.63); Red Cell Distribution Width 15.4 % (12-17); White Blood Count 16.1 10^3/uL (3.6-10.2)
[2024-01-03 06:37] LABS: Calcium 9.9 mg/dL (8.6-10.3); Creatinine, Serum 1.01 mg/dL (0.67-1.17); Potassium 3.4 mmol/L (3.5-5.0); eGFR CKD-EPI 73.8 (>60)
[2024-01-03] MEDS: KCL 20 MEQ/100 ML IVPREMIX 20 MEQ/100 ML BAG IV ONE (07:37)
[2024-01-03 07:57] LABS: C Reactive Protein 2.82 mg/L (<8.01)
[2024-01-03] MEDS: cefTRIAXone 1 gm/50 mL D5W 1 GM/50 ML BAG IV SCH (10:49)
[2024-01-03 13:34] LABS: Urine Appearance Clear; Urine Bilirubin Negative (Negative); Urine Blood Negative (Negative); Urine Color Light-Yellow; Urine Glucose Negative (Negative); Urine Ketones Trace (Negative); Urine Nitrite Negative (Negative); Urine Protein 1+ (>=30 mg/dL) (Negative); Urine Specific Gravity 1.021 (1.002-1.030); Urine Urobilinogen Negative (Negative); Urine pH 6.5 (5.0-8.0)
[2024-01-03 13:36] LABS: Urine Bacteria Absent /HPF (Absent); Urine Red Blood Cell Trace(0-2/hpf) /HPF (0-Trace); Urine White Blood Cell Trace(0-5/hpf) /HPF (0-Trace)
[2024-01-03] MEDS: Lactated Ringers 1000 ml BAG 1,000 ML IV SCH (23:16)
[2024-01-04 07:17] LABS: ABS Lymphocytes 2.4 10^3/uL (1.0-4.8); ABS Monocytes 0.8 10^3/uL (0.0-1.1); ABS Neutrophils 5.9 10^3/uL (1.5-7.6); Eosinophil % 0.1 %; Hematocrit 40.3 % (38-53); Hemoglobin 13.5 g/dL (13.2-16.3); Lymphocyte % 26.7 %; Mean Corpuscular Hemoglobin 29.8 pg (27-33); Mean Corpuscular Hgb Conc 33.6 g/dL (31-36); Mean Corpuscular Volume 88.5 fL (80-97); Mean Platelet Volume 8.4 fL (7.5-11.2); Platelet Count 220 10^3/uL (150-450); Red Blood Count 4.55 10^6/uL (4.06-5.63); Red Cell Distribution Width 15.6 % (12-17); White Blood Count 9.2 10^3/uL (3.6-10.2)
[2024-01-04 07:55] LABS: Anion Gap 12 mmol/L (2-16); Blood Urea Nitrogen 41 mg/dL (6-24); CO2 Carbon Dioxide 29 mmol/L (22-32); Calcium 8.9 mg/dL (8.6-10.3); Chloride 97 mmol/L (101-111); Creatinine, Serum 2.26 mg/dL (0.67-1.17); Glucose 101 mg/dL (70-100); Potassium 3.8 mmol/L (3.5-5.0); Sodium 138 mmol/L (135-145); eGFR CKD-EPI 28.1 (>60)
[2024-01-04] MEDS: Lactated Ringers 1000 ml BAG 1,000 ML IV SCH ×2 (08:52→18:57)
[2024-01-04] MEDS: Lactated Ringers 1000 ml BAG 1,000 ML IV ONE (09:35)
[2024-01-04 12:49] LABS: C Reactive Protein < 1.00 mg/L (<8.01)
[2024-01-04 15:34] LABS: Calcium 8.6 mg/dL (8.6-10.3); Creatinine, Serum 1.72 mg/dL (0.67-1.17); Potassium 3.5 mmol/L (3.5-5.0)
[2024-01-05 06:51] LABS: Hematocrit 39.9 % (38-53); Hemoglobin 13.5 g/dL (13.2-16.3); Mean Corpuscular Hemoglobin 29.8 pg (27-33); Mean Corpuscular Hgb Conc 33.8 g/dL (31-36); Mean Corpuscular Volume 88.2 fL (80-97); Mean Platelet Volume 8.2 fL (7.5-11.2); Platelet Count 150 10^3/uL (150-450); Red Blood Count 4.52 10^6/uL (4.06-5.63); Red Cell Distribution Width 15.4 % (12-17); White Blood Count 6.3 10^3/uL (3.6-10.2)
[2024-01-05 07:06] LABS: Calcium 8.7 mg/dL (8.6-10.3); Creatinine, Serum 1.11 mg/dL (0.67-1.17); Potassium 3.6 mmol/L (3.5-5.0); eGFR CKD-EPI 65.9 (>60)
[2024-01-05 14:44] VITALS: BP 139/81
[2024-01-09 11:40] LABS: Helicobacter pylori Result Not Detected; Specimen Source STOOL
== END 2024-01-05 14:28 | disposition home health service (06) | DRG 381 ==
LOC: ED 21:38 → EDHOLD 21:38 → SUATTDRO 01-02 05:21 → SSU 01-02 07:50
PROVIDERS: ADMIT Hospitalist; ATTEND Internal Medicine

== ENCOUNTER 2024-02-22 17:08 | Inpatient (IN) ==
[2024-02-22 18:26] LABS: ABS Basophils 0.2 10^3/uL (0.0-0.1); ABS Lymphocytes 2.4 10^3/uL (1.0-4.8); ABS Monocytes 1.3 10^3/uL (0.0-1.1); ABS Neutrophils 14.1 10^3/uL (1.5-7.6); ABS Nucleated RBC 0.03 10^3/ul; Eosinophil % 0.1 %; Hematocrit 43.5 % (38-53); Hemoglobin 14.7 g/dL (13.2-16.3); Lymphocyte % 13.3 %; Mean Corpuscular Hemoglobin 29.3 pg (27-33); Mean Corpuscular Hgb Conc 33.8 g/dL (31-36); Mean Corpuscular Volume 86.5 fL (80-97); Mean Platelet Volume 8.7 fL (7.5-11.2); Nucleated Red Blood Cells % 0.2 %/100WBC (0.0-0.8); Platelet Count 327 10^3/uL (150-450); Red Blood Count 5.03 10^6/uL (4.06-5.63); Red Cell Distribution Width 14.5 % (12-17)
[2024-02-22 18:51] LABS: INR 1.38 (0.85-1.14)
[2024-02-22 19:15] LABS: Albumin 4.3 g/dL (3.2-5.2); Albumin/Globulin Ratio 1.7 (1-3); Calcium 10.3 mg/dL (8.6-10.3); Creatinine, Serum 1.3 mg/dL (0.67-1.17); Globulin 2.5 g/dL (2-4); Potassium 3.8 mmol/L (3.5-5.0); Total Bilirubin 0.6 mg/dL (0.2-1.0); Total Protein 6.8 g/dL (6.4-8.9); eGFR CKD-EPI 54.5 (>60)
[2024-02-22] MEDS: Lactated Ringers 1000 ml BAG 1,000 ML IV ONE ×2 (19:16→20:49)
[2024-02-22 20:16] LABS: High Sensitivity Troponin 1 Hr 22 pg/mL (<20)
[2024-02-22] MEDS: oxyCODONE/Acetamin 5/325 mg TAB PO ONE (20:33)
[2024-02-22] MEDS: cefTRIAXone 1 gm/50 mL D5W 1 GM/50 ML BAG IV ONE (20:35)
[2024-02-22] MEDS: Lactated Ringers 1000 ml BAG 1,000 ML IV SCH (23:52)
[2024-02-23] MEDS ORDERED: Magnesium Hydroxide LIQ 30 ML UDC PO PRN (00:23)
[2024-02-23] MEDS: HYDROcodone/ACETAMIN 5/325 mg TAB PO PRN (00:35)
[2024-02-23] MEDS ORDERED: Albuterol/Ipratropium NEB.SOL (2.5/0.5 MG) 3 ML NEB.SOLN INH PRN (00:39)
[2024-02-23 01:34] LABS: C Reactive Protein 1.6 mg/L (<8.01)
[2024-02-23 01:50] LABS: TSH Ultra Thyroid Stim Horm 3.23 mcIU/mL (0.34-5.60)
[2024-02-23 02:01] LABS: Folate 18.55 ng/mL (5.90-24.80)
[2024-02-23 02:08] LABS: Urine Appearance Clear; Urine Bilirubin Negative (Negative); Urine Blood 1+ (Negative); Urine Color Light-Yellow; Urine Glucose Negative (Negative); Urine Ketones Negative (Negative); Urine Nitrite Negative (Negative); Urine Protein Trace (Negative); Urine Specific Gravity 1.013 (1.002-1.030); Urine Urobilinogen Negative (Negative); Urine pH 6.5 (5.0-8.0)
[2024-02-23 02:21] LABS: Urine Bacteria Absent /HPF (Absent); Urine Red Blood Cell Trace(0-2/hpf) /HPF (0-Trace); Urine White Blood Cell Trace(0-5/hpf) /HPF (0-Trace)
[2024-02-23 02:28] LABS: Erythrocyte Sed Rate 5 mm/Hr (0-19)
[2024-02-23] MEDS: Ondansetron 4 mg VIAL 2 MG/ML 2 ml VIAL IV PRN (03:26)
[2024-02-23 03:56] LABS: ABS Basophils 0.1 10^3/uL (0.0-0.1); ABS Eosinophils 0.1 10^3/uL (0.0-0.5); ABS Lymphocytes 2.5 10^3/uL (1.0-4.8); ABS Monocytes 1.2 10^3/uL (0.0-1.1); ABS Neutrophils 13.4 10^3/uL (1.5-7.6); Eosinophil % 0.4 %; Hematocrit 44.1 % (38-53); Hemoglobin 15.1 g/dL (13.2-16.3); Lymphocyte % 14.3 %; Mean Corpuscular Hemoglobin 29.4 pg (27-33); Mean Corpuscular Hgb Conc 34.1 g/dL (31-36); Platelet Count 293 10^3/uL (150-450); Red Blood Count 5.13 10^6/uL (4.06-5.63); Red Cell Distribution Width 14.7 % (12-17); White Blood Count 17.2 10^3/uL (3.6-10.2)
[2024-02-23 04:45] LABS: Calcium 9.8 mg/dL (8.6-10.3); Creatinine, Serum 0.93 mg/dL (0.67-1.17); Magnesium 1.6 mg/dL (1.9-2.7); Potassium 3.2 mmol/L (3.5-5.0); eGFR CKD-EPI 81.5 (>60)
[2024-02-23] MEDS: Magnesium Sulfate 2 gm BAG 2 GM/50 ML BAG IVPB ONE (05:57)
[2024-02-23] MEDS: KCL 20 MEQ/100 ML IVPREMIX 20 MEQ/100 ML BAG IV SCH (07:42)
[2024-02-23] MEDS: DULoxetine DR 20 mg CAP PO SCH (09:52)
[2024-02-23] MEDS: Polyethylene Glycol 3350 17 GM PACKET PO SCH (09:52)
[2024-02-23] MEDS: Latanoprost 0.005% 2.5 ml BTL BOTH EYES SCH ×2 (09:53→20:15)
[2024-02-23] MEDS: Magnesium Sulfate IV 1GM/100ML 1 GM/100 ML BAG IV ONE (12:06)
[2024-02-23] MEDS: cefTRIAXone 1 gm/50 mL D5W 1 GM/50 ML BAG IV SCH (20:04)
[2024-02-23] MEDS: Senna TAB 8.6 mg TAB PO SCH (20:08)
[2024-02-24 06:07] LABS: Hematocrit 45.4 % (38-53); Hemoglobin 15.1 g/dL (13.2-16.3); Mean Corpuscular Hemoglobin 28.8 pg (27-33); Mean Corpuscular Hgb Conc 33.2 g/dL (31-36); Mean Corpuscular Volume 86.6 fL (80-97); Mean Platelet Volume 8.6 fL (7.5-11.2); Platelet Count 284 10^3/uL (150-450); Red Blood Count 5.24 10^6/uL (4.06-5.63); Red Cell Distribution Width 14.4 % (12-17); White Blood Count 11.5 10^3/uL (3.6-10.2)
[2024-02-24 06:21] LABS: Calcium 9.4 mg/dL (8.6-10.3); Creatinine, Serum 0.93 mg/dL (0.67-1.17); Magnesium 2.2 mg/dL (1.9-2.7); Potassium 3.6 mmol/L (3.5-5.0); eGFR CKD-EPI 81.5 (>60)
[2024-02-25 07:04] LABS: ABS Lymphocytes 2.5 10^3/uL (1.0-4.8); ABS Monocytes 0.9 10^3/uL (0.0-1.1); Eosinophil % 0.6 %; Hematocrit 41.5 % (38-53); Hemoglobin 14.1 g/dL (13.2-16.3); Lymphocyte % 33.4 %; Mean Corpuscular Hemoglobin 29.4 pg (27-33); Mean Corpuscular Volume 86.4 fL (80-97); Mean Platelet Volume 8.3 fL (7.5-11.2); Nucleated Red Blood Cells % 0.1 %/100WBC (0.0-0.8); Platelet Count 232 10^3/uL (150-450); Red Blood Count 4.81 10^6/uL (4.06-5.63); Red Cell Distribution Width 14.3 % (12-17); White Blood Count 7.4 10^3/uL (3.6-10.2)
[2024-02-25 07:27] LABS: Creatinine, Serum 1.59 mg/dL (0.67-1.17); Potassium 3.6 mmol/L (3.5-5.0); eGFR CKD-EPI 42.8 (>60)
[2024-02-25] MEDS: Lidocaine PATCH 5% PATCH TRANSDERM SCH (10:21)
[2024-02-25] MEDS: Lactated Ringers 1000 ml BAG 1,000 ML IV ONE (10:21)
[2024-02-25 15:43] LABS: Calcium 8.9 mg/dL (8.6-10.3); Creatinine, Serum 1.41 mg/dL (0.67-1.17); Potassium 3.3 mmol/L (3.5-5.0); eGFR CKD-EPI 49.4 (>60)
[2024-02-25] MEDS: Potassium Chlor 20 meq TAB.ER PO ONE (17:14)
[2024-02-25] MEDS: KCL 10 MEQ/50 ML IVPREMIX 10 MEQ/50 ML BAG IV SCH (17:14)
[2024-02-25 20:51] LABS: Calcium 8.7 mg/dL (8.6-10.3); Creatinine, Serum 1.39 mg/dL (0.67-1.17); Magnesium 2.1 mg/dL (1.9-2.7); Potassium 3.9 mmol/L (3.5-5.0); eGFR CKD-EPI 50.3 (>60)
[2024-02-25] MEDS: Lactated Ringers 1000 ml BAG 1,000 ML IV SCH (20:57)
[2024-02-26 07:14] LABS: ABS Eosinophils 0.1 10^3/uL (0.0-0.5); ABS Lymphocytes 2.2 10^3/uL (1.0-4.8); ABS Monocytes 0.7 10^3/uL (0.0-1.1); ABS Neutrophils 3.2 10^3/uL (1.5-7.6); Eosinophil % 1.7 %; Hematocrit 40.7 % (38-53); Hemoglobin 13.9 g/dL (13.2-16.3); Lymphocyte % 35.2 %; Mean Corpuscular Hemoglobin 29.5 pg (27-33); Mean Corpuscular Hgb Conc 34.1 g/dL (31-36); Mean Corpuscular Volume 86.3 fL (80-97); Mean Platelet Volume 8.5 fL (7.5-11.2); Nucleated Red Blood Cells % 0.1 %/100WBC (0.0-0.8); Platelet Count 198 10^3/uL (150-450); Red Blood Count 4.72 10^6/uL (4.06-5.63); Red Cell Distribution Width 14.1 % (12-17); White Blood Count 6.2 10^3/uL (3.6-10.2)
[2024-02-26 07:22] LABS: Calcium 8.6 mg/dL (8.6-10.3); Creatinine, Serum 1.07 mg/dL (0.67-1.17); Potassium 3.7 mmol/L (3.5-5.0); eGFR CKD-EPI 68.9 (>60)
[2024-02-26 13:20] VITALS: BP 151/90
== END 2024-02-26 15:25 | disposition home or self-care (01) | DRG 871 ==
LOC: EDHOLD 17:08 → ED 17:08 → MED 22:18 → SUATTDRO 02-24 12:05
PROVIDERS: ADMIT Student in an Organized Health Care Education/Training Program; ATTEND Hospitalist

== ENCOUNTER 2024-05-20 15:02 | Inpatient (IN) ==
[2024-05-20 16:05] LABS: ABS Basophils 0.1 10^3/uL (0.0-0.1); ABS Lymphocytes 1.6 10^3/uL (1.0-4.8); ABS Monocytes 0.3 10^3/uL (0.0-1.1); ABS Neutrophils 8.7 10^3/uL (1.5-7.6); Hemoglobin 16.3 g/dL (13.2-16.3); Lymphocyte % 14.9 %; Mean Corpuscular Hemoglobin 29.2 pg (27-33); Mean Corpuscular Volume 85.9 fL (80-97); Mean Platelet Volume 8.6 fL (7.5-11.2); Platelet Count 269 10^3/uL (150-450); Red Blood Count 5.58 10^6/uL (4.06-5.63); Red Cell Distribution Width 16.1 % (12-17); White Blood Count 10.7 10^3/uL (3.6-10.2)
[2024-05-20 16:24] LABS: INR 1.13 (0.85-1.14)
[2024-05-20 16:33] LABS: High Sens Troponin Baseline 7 pg/mL (<20)
[2024-05-20] MEDS: Lactated Ringers 1000 ml BAG 1,000 ML IV ONE ×2 (16:42→17:15)
[2024-05-20] MEDS: Ondansetron 4 mg VIAL 2 MG/ML 2 ml VIAL IV ONE ×2 (16:42→21:46)
[2024-05-20 16:44] LABS: ALT 28 U/L (7-52); Albumin 5.4 g/dL (3.5-5.7); Albumin/Globulin Ratio 1.7 (1-3); Alkaline Phosphatase 98 U/L (35-149); Anion Gap 12 mmol/L (2-16); Blood Urea Nitrogen 14 mg/dL (6-24); CO2 Carbon Dioxide 27 mmol/L (22-32); Calcium 10.8 mg/dL (8.6-10.3); Chloride 96 mmol/L (101-111); Creatinine, Serum 0.91 mg/dL (0.67-1.17); Globulin 3.2 g/dL (2-4); Glucose 169 mg/dL (70-100); Sodium 135 mmol/L (135-145); Total Bilirubin 0.7 mg/dL (0.2-1.0); Total Protein 8.6 g/dL (6.4-8.9); eGFR CKD-EPI 83.6 (>60)
[2024-05-20 17:37] LABS: Potassium Redraw 3.5 mmol/L (3.5-5.0)
[2024-05-20] MEDS: Iohexol 350 (CONTRAST) 500 ML MDV IV ONE (19:56)
[2024-05-20 20:54] LABS: Urine Appearance Clear; Urine Bilirubin Negative (Negative); Urine Blood Negative (Negative); Urine Color Colorless; Urine Glucose Negative (Negative); Urine Ketones Trace (Negative); Urine Nitrite Negative (Negative); Urine Protein Trace (Negative); Urine Specific Gravity 1.022 (1.002-1.030); Urine Urobilinogen Negative (Negative)
[2024-05-20 21:04] LABS: Urine Bacteria Absent /HPF (Absent); Urine Red Blood Cell Trace(0-2/hpf) /HPF (0-Trace); Urine White Blood Cell Absent /HPF (0-Trace)
[2024-05-20] MEDS ORDERED: Ondansetron 4 mg VIAL 2 MG/ML 2 ml VIAL ONE (21:28)
[2024-05-20] MEDS: Haloperidol 5 mg/ml SDV IV/IM 5 MG/ML AMP IV SLOW PU ONE (21:50)
[2024-05-20] MEDS: Acetaminophen IV 1 GM/100ML 1,000 MG/100 ML BAG IV ONE (21:58)
[2024-05-20] MEDS: Pantoprazole 80 mg in NS BAG 80 MG/250 ML BAG IV ONE (23:25)
[2024-05-21] MEDS: Pantoprazole VIAL 40 MG VIAL IV ONE (00:27)
[2024-05-21] MEDS ORDERED: hydrALAZINE 20 mg/ml 1 ML Vial IV IV SLOW PU PRN (00:49)
[2024-05-21] MEDS ORDERED: Albuterol HFA INHALER 8 gm MDI INH PRN (01:04)
[2024-05-21 01:46] LABS: TSH Ultra Thyroid Stim Horm 77.57 mcIU/mL (0.34-5.60)
[2024-05-21] MEDS: cefTRIAXone 1 gm/50 mL D5W 1 GM/50 ML BAG IV SCH (02:17)
[2024-05-21] MEDS: Lactated Ringers 1000 ml BAG 1,000 ML IV SCH (04:02)
[2024-05-21] MEDS: metroNIDAZOLE IV 500 MG/100ML 500 MG/100 ML BAG IVPB SCH ×2 (04:02→17:48)
[2024-05-21] MEDS: Acetaminophen IV 1 GM/100ML 1,000 MG/100 ML BAG IV PRN (04:45)
[2024-05-21 06:09] LABS: ABS Basophils 0.1 10^3/uL (0.0-0.1); ABS Lymphocytes 2.3 10^3/uL (1.0-4.8); ABS Monocytes 0.8 10^3/uL (0.0-1.1); ABS Neutrophils 13.3 10^3/uL (1.5-7.6); ABS Nucleated RBC 0.01 10^3/ul; Hematocrit 45.2 % (38-53); Hemoglobin 15.2 g/dL (13.2-16.3); Lymphocyte % 14.1 %; Mean Corpuscular Hemoglobin 28.5 pg (27-33); Mean Corpuscular Hgb Conc 33.6 g/dL (31-36); Mean Corpuscular Volume 84.9 fL (80-97); Mean Platelet Volume 8.3 fL (7.5-11.2); Nucleated Red Blood Cells % 0.1 %/100WBC (0.0-0.8); Platelet Count 305 10^3/uL (150-450); Red Blood Count 5.32 10^6/uL (4.06-5.63); Red Cell Distribution Width 16.1 % (12-17); White Blood Count 16.5 10^3/uL (3.6-10.2)
[2024-05-21 06:54] LABS: Calcium 10.3 mg/dL (8.6-10.3); Creatinine, Serum 0.89 mg/dL (0.67-1.17); Potassium 3.4 mmol/L (3.5-5.0)
[2024-05-21 07:11] LABS: Free T3 2.38 pg/mL (2.5-3.9)
[2024-05-21 07:12] LABS: Free T4 0.38 ng/dL (0.61-1.12)
[2024-05-21] MEDS: Pantoprazole VIAL 40 MG VIAL IV SCH (08:42)
[2024-05-21] MEDS: DULoxetine DR 20 mg CAP PO SCH (08:43)
[2024-05-21] MEDS ORDERED: Carvedilol 12.5 MG TAB (NF) PO SCH (09:00)
[2024-05-21] MEDS ORDERED: Pantoprazole VIAL 40 MG VIAL IV SCH (09:00)
[2024-05-21] MEDS: KCL 20 MEQ/100 ML IVPREMIX 20 MEQ/100 ML BAG IV SCH (11:56)
[2024-05-21 12:07] LABS: Magnesium 1.7 mg/dL (1.9-2.7)
[2024-05-21] MEDS: Magnesium Sulfate 2 gm BAG 2 GM/50 ML BAG IVPB ONE (13:27)
[2024-05-21] MEDS ORDERED: Haloperidol 5 mg/ml SDV IV/IM 5 MG/ML AMP IV SLOW PU PRN (18:27)
[2024-05-21] MEDS: Albuterol/Ipratropium NEB.SOL (2.5/0.5 MG) 3 ML NEB.SOLN INH SCH (19:40)
[2024-05-21] MEDS: Tiotropium Brom/Olodaterol MDI (ACUTE) INH SCH (19:44)
[2024-05-21] MEDS ORDERED: Albuterol/Ipratropium NEB.SOL (2.5/0.5 MG) 3 ML NEB.SOLN INH PRN (19:47)
[2024-05-22] MEDS: cefTRIAXone 1 gm/50 mL D5W 1 GM/50 ML BAG IV SCH (00:36)
[2024-05-22 06:40] LABS: ABS Basophils 0.1 10^3/uL (0.0-0.1); ABS Lymphocytes 2.3 10^3/uL (1.0-4.8); ABS Monocytes 1.2 10^3/uL (0.0-1.1); ABS Neutrophils 11.1 10^3/uL (1.5-7.6); ABS Nucleated RBC 0.01 10^3/ul; Hematocrit 46.4 % (38-53); Hemoglobin 15.8 g/dL (13.2-16.3); Lymphocyte % 15.8 %; Mean Corpuscular Hemoglobin 29.1 pg (27-33); Mean Corpuscular Hgb Conc 34.1 g/dL (31-36); Mean Corpuscular Volume 85.1 fL (80-97); Mean Platelet Volume 8.6 fL (7.5-11.2); Nucleated Red Blood Cells % 0.1 %/100WBC (0.0-0.8); Platelet Count 290 10^3/uL (150-450); Red Blood Count 5.45 10^6/uL (4.06-5.63); Red Cell Distribution Width 16.1 % (12-17); White Blood Count 14.7 10^3/uL (3.6-10.2)
[2024-05-22 07:09] LABS: Potassium 3.7 mmol/L (3.5-5.0)
[2024-05-22 07:12] LABS: Albumin 4.4 g/dL (3.5-5.7); Albumin/Globulin Ratio 1.7 (1-3); Calcium 9.4 mg/dL (8.6-10.3); Creatinine, Serum 0.84 mg/dL (0.67-1.17); Globulin 2.6 g/dL (2-4); Total Bilirubin 0.7 mg/dL (0.2-1.0); eGFR CKD-EPI 86.5 (>60)
[2024-05-22] MEDS ORDERED: Magnesium Hydroxide LIQ 30 ML UDC PO PRN (07:55)
[2024-05-22] MEDS: Ondansetron 4 mg VIAL 2 MG/ML 2 ml VIAL IV PRN (07:59)
[2024-05-22] MEDS ORDERED: Morphine 4 MG/ML VIAL (1 ml) IV PRN (10:32)
[2024-05-22] MEDS: Levothyroxine 100 MCG/5 ML VIAL IV ONE (11:28)
[2024-05-22] MEDS: Morphine 4 MG/ML VIAL (1 ml) IV PRN (11:28)
[2024-05-22] MEDS: Polyethylene Glycol 3350 17 GM PACKET PO SCH (11:31)
[2024-05-22] MEDS ORDERED: Prochlorperazine 5 mg/ml 2 ml VIAL (10 mg) IV PRN (12:40)
[2024-05-22 13:52] LABS: Potassium Redraw 3.6 mmol/L (3.5-5.0)
[2024-05-22] MEDS: HYDROcodone/ACETAMIN 5/325 mg TAB PO PRN (15:07)
[2024-05-22] MEDS: Senna TAB 8.6 mg TAB PO SCH (22:22)
[2024-05-22] MEDS: Latanoprost 0.005% 2.5 ml BTL BOTH EYES SCH (22:30)
[2024-05-23 06:23] LABS: Hematocrit 41.9 % (38-53); Hemoglobin 14.2 g/dL (13.2-16.3); Mean Corpuscular Hemoglobin 29.7 pg (27-33); Mean Corpuscular Volume 87.4 fL (80-97); Mean Platelet Volume 8.9 fL (7.5-11.2); Platelet Count 154 10^3/uL (150-450); Red Blood Count 4.79 10^6/uL (4.06-5.63); Red Cell Distribution Width 16.2 % (12-17); White Blood Count 11.8 10^3/uL (3.6-10.2)
[2024-05-23 07:12] LABS: ALT 49 U/L (7-52); Albumin 3.6 g/dL (3.5-5.7); Albumin/Globulin Ratio 1.5 (1-3); Alkaline Phosphatase 60 U/L (35-149); Anion Gap 13 mmol/L (2-16); Blood Urea Nitrogen 35 mg/dL (6-24); CO2 Carbon Dioxide 22 mmol/L (22-32); Calcium 8.4 mg/dL (8.6-10.3); Chloride 97 mmol/L (101-111); Creatinine, Serum 2.77 mg/dL (0.67-1.17); Globulin 2.4 g/dL (2-4); Glucose 107 mg/dL (70-100); Sodium 132 mmol/L (135-145); Total Bilirubin 0.6 mg/dL (0.2-1.0)
[2024-05-23 07:35] LABS: ABS Basophils 0.1 10^3/uL (0.0-0.1); ABS Lymphocytes 3.3 10^3/uL (1.0-4.8); ABS Monocytes 1.6 10^3/uL (0.0-1.1); ABS Neutrophils 6.9 10^3/uL (1.5-7.6); ABS Nucleated RBC 0.01 10^3/ul; Eosinophil % 0.2 %; Lymphocyte % 28.1 %; Nucleated Red Blood Cells % 0.1 %/100WBC (0.0-0.8)
[2024-05-23 08:37] LABS: Magnesium 2.1 mg/dL (1.9-2.7); Phosphorus 6.5 mg/dL (2.5-5.0); Potassium Redraw 3.9 mmol/L (3.5-5.0)
[2024-05-23] MEDS: Lactated Ringers 1000 ml BAG 1,000 ML IV ONE (15:24)
[2024-05-23] MEDS ORDERED: Lactated Ringers 1000 ml BAG 1,000 ML IV SCH (16:00)
[2024-05-23] MEDS: Lactated Ringers 1000 ml BAG 1,000 ML IV SCH (16:51)
[2024-05-24 06:40] LABS: Hematocrit 37.4 % (38-53); Hemoglobin 12.8 g/dL (13.2-16.3); Mean Corpuscular Hemoglobin 29.4 pg (27-33); Mean Corpuscular Hgb Conc 34.1 g/dL (31-36); Mean Corpuscular Volume 86.2 fL (80-97); Mean Platelet Volume 8.1 fL (7.5-11.2); Platelet Count 170 10^3/uL (150-450); Red Blood Count 4.34 10^6/uL (4.06-5.63); Red Cell Distribution Width 16.1 % (12-17); White Blood Count 6.9 10^3/uL (3.6-10.2)
[2024-05-24 07:37] LABS: Calcium 8.3 mg/dL (8.6-10.3); Creatinine, Serum 2.05 mg/dL (0.67-1.17); Potassium 3.4 mmol/L (3.5-5.0); eGFR CKD-EPI 31.6 (>60)
[2024-05-24] MEDS: Potassium Chloride LIQUID 20 MEQ/15 ML LIQUID PO ONE ×2 (08:55→14:45)
[2024-05-24 13:07] LABS: Calcium 8.6 mg/dL (8.6-10.3); Creatinine, Serum 1.6 mg/dL (0.67-1.17); Potassium 3.8 mmol/L (3.5-5.0); eGFR CKD-EPI 42.5 (>60)
[2024-05-24 14:03] VITALS: BP 114/97
== END 2024-05-24 17:00 | disposition home health service (06) | DRG 871 ==
LOC: EDHOLD 15:02 → ED 15:02 → OBSVTOIN 23:15 → SUATTDRO 23:15 → MED 05-21 15:16
PROVIDERS: ADMIT Internal Medicine; ATTEND Student in an Organized Health Care Education/Training Program